=== PATIENT | male | born 1950 | race Caucasian/White ===

== ENCOUNTER → 2016-08-27 | Outpatient (REF) | payer MEDICARE, BC ==
[2016-08-27 16:17] LABS: ALBUMIN/GLOBULIN RATIO 1.38 (1.00-1.93); ALKALINE PHOSPHATASE 58 U/L (45-117); ALT/SGPT 60 U/L (12-78); ANION GAP 8 MEQ/L (8-16); AST/SGOT 56 U/L (15-37); BILIRUBIN,TOTAL 0.7 MG/DL (0.2-1.0); BLOOD UREA NITROGEN 17 MG/DL (7-18); CALCIUM LEVEL 8.9 MG/DL (8.8-10.2); CARBON DIOXIDE LEVEL 29 MEQ/L (21-32); CHLORIDE LEVEL 102 MEQ/L (98-107); CHOLESTEROL LEVEL 137 MG/DL (<200); CREATININE FOR GFR 0.78 MG/DL (0.70-1.30); GLOMERULAR FILTRATION RATE > 60.0 (>49); GLUCOSE, FASTING 136 MG/DL (80-110); POTASSIUM SERUM 4.4 MEQ/L (3.5-5.1); SODIUM LEVEL 139 MEQ/L (136-145); TOTAL PROTEIN 6.9 GM/DL (6.4-8.2); TRIGLYCERIDES LEVEL 135 MG/DL (<150)
== END ==
LOC: M SFHCSACK 08:15
PROVIDERS: ATTEND Physician Assistant
DX: I10 Essential (primary) hypertension (principal); E78.5 Hyperlipidemia, unspecified; E11.9 Type 2 diabetes mellitus without complications; E03.9 Hypothyroidism, unspecified

== ENCOUNTER → 2016-10-27 | Outpatient (REF) | payer BC, MEDICARE ==
[2016-10-27 16:17] LABS: ALBUMIN 3.9 GM/DL (3.2-5.2); ALBUMIN/GLOBULIN RATIO 1.44 (1.00-1.93); ALKALINE PHOSPHATASE 56 U/L (45-117); ALT/SGPT 54 U/L (12-78); ANION GAP 7 MEQ/L (8-16); AST/SGOT 35 U/L (15-37); BILIRUBIN,TOTAL 0.4 MG/DL (0.2-1.0); BLOOD UREA NITROGEN 15 MG/DL (7-18); CALCIUM LEVEL 9.7 MG/DL (8.8-10.2); CARBON DIOXIDE LEVEL 27 MEQ/L (21-32); CHLORIDE LEVEL 105 MEQ/L (98-107); CREATININE FOR GFR 0.82 MG/DL (0.70-1.30); GLOMERULAR FILTRATION RATE > 60.0 (>49); GLUCOSE, FASTING 129 MG/DL (80-110); POTASSIUM SERUM 4.6 MEQ/L (3.5-5.1); SODIUM LEVEL 139 MEQ/L (136-145); TOTAL PROTEIN 6.6 GM/DL (6.4-8.2)
== END ==
LOC: M SFHCSACK 08:00
PROVIDERS: ATTEND Physician Assistant
DX: E11.9 Type 2 diabetes mellitus without complications (principal)

== ENCOUNTER → 2017-02-04 | Outpatient (REF) | payer BC, MEDICARE ==
[2017-02-04 15:56] LABS: BASO # 0.1 10^3/uL (0.0-0.2); EOS # 0.2 10^3/uL (0.0-0.50); EOS % 2.6 % (0.0-3.0); IMMATURE GRANULOCYTE % 1.2 % (0-0); LYMPH # 1.8 10^3/uL (1.5-4.5); LYMPH % 31.8 % (24.0-44.0); MEAN CORPUSCULAR HEMOGLOBIN 33.4 pg (27.0-33.0); MEAN CORPUSCULAR HGB CONC 34.1 g/dl (32.0-36.5); MONO # 0.6 10^3/uL (0.0-0.8); NEUTROPHILS % 52.4 % (36.0-66.0); PLATELET COUNT, AUTOMATED 169 10^3/uL (150-450); RED CELL DISTRIBUTION WIDTH 11.8 % (11.5-14.5); WHITE BLOOD COUNT 5.7 10^3/uL (4.0-10.0)
[2017-02-04 16:18] LABS: ALBUMIN 4.1 GM/DL (3.2-5.2); ALBUMIN/GLOBULIN RATIO 1.41 (1.00-1.93); ALKALINE PHOSPHATASE 79 U/L (45-117); ALT/SGPT 67 U/L (12-78); ANION GAP 6 MEQ/L (8-16); AST/SGOT 53 U/L (15-37); BILIRUBIN,TOTAL 0.4 MG/DL (0.2-1.0); BLOOD UREA NITROGEN 19 MG/DL (7-18); CALCIUM LEVEL 9.1 MG/DL (8.8-10.2); CARBON DIOXIDE LEVEL 29 MEQ/L (21-32); CHLORIDE LEVEL 101 MEQ/L (98-107); CHOLESTEROL LEVEL 167 MG/DL (<200); FREE T4 0.99 NG/DL (0.76-1.46); GLOMERULAR FILTRATION RATE > 60.0 (>49); GLUCOSE, FASTING 129 MG/DL (80-110); POTASSIUM SERUM 4.4 MEQ/L (3.5-5.1); SODIUM LEVEL 136 MEQ/L (136-145); TRIGLYCERIDES LEVEL 177 MG/DL (<150)
== END ==
LOC: M SFHCSACK 08:26
PROVIDERS: ATTEND Physician Assistant
DX: E03.9 Hypothyroidism, unspecified (principal); I10 Essential (primary) hypertension; E11.9 Type 2 diabetes mellitus without complications; E78.5 Hyperlipidemia, unspecified

== ENCOUNTER → 2017-03-16 | Outpatient (CLI) | payer BC, MEDICARE ==
--- NOTE | 2017-03-16 09:24 | REP ---
Clinical: Lung screening. History smoking. Comparison: None Technique: Axial low-dose noncontrast images from the thoracic inlet to the upper abdomen using lung screening technique. Findings: The lung elam are well-aerated. No consolidation, significant nodule or mass lesion is appreciated. No pleural effusion/reaction or pneumothorax. Tracheobronchial tree is patent. Mediastinum is grossly unremarkable. Impression: Lung-RADS category I. No nodule or suspicious abnormality. Signed by Silvano Muñoz MD 03/16/2017 09:15 A
== END ==
LOC: M RAD 08:08
PROVIDERS: ATTEND Physician Assistant
DX: Z12.2 Encounter for screening for malignant neoplasm of respiratory organs (principal); Z72.0 Tobacco use

== ENCOUNTER → 2017-06-01 | Outpatient (REF) | payer BC, MEDICARE ==
[2017-06-01 14:38] LABS: BASO # 0.1 10^3/uL (0.0-0.2); BASO % 0.8 % (0.0-1.0); EOS # 0.2 10^3/uL (0.0-0.50); EOS % 3.1 % (0.0-3.0); HEMATOCRIT 46.6 % (42.0-52.0); LYMPH % 31.4 % (24.0-44.0); MEAN CORPUSCULAR HEMOGLOBIN 33.1 pg (27.0-33.0); MEAN CORPUSCULAR HGB CONC 34.3 g/dl (32.0-36.5); MEAN CORPUSCULAR VOLUME 96.3 fl (80.0-96.0); MONO # 0.7 10^3/uL (0.0-0.8); MONO % 11.6 % (0.0-5.0); NEUTROPHILS # 3.2 10^3/uL (1.8-7.7); NEUTROPHILS % 52.1 % (36.0-66.0); PLATELET COUNT, AUTOMATED 159 10^3/uL (150-450); RED BLOOD COUNT 4.84 10^6/uL (4.30-6.10); RED CELL DISTRIBUTION WIDTH 12.2 % (11.5-14.5); WHITE BLOOD COUNT 6.2 10^3/uL (4.0-10.0)
[2017-06-01 15:06] LABS: ESTIMATED AVERAGE GLUCOSE 154 MG/DL (60-110)
[2017-06-01 15:43] LABS: ALBUMIN 4.1 GM/DL (3.2-5.2); ALBUMIN/GLOBULIN RATIO 1.32 (1.00-1.93); ALKALINE PHOSPHATASE 60 U/L (45-117); ALT/SGPT 52 U/L (12-78); ANION GAP 11 MEQ/L (8-16); AST/SGOT 33 U/L (7-37); BILIRUBIN,TOTAL 0.5 MG/DL (0.2-1.0); BLOOD UREA NITROGEN 20 MG/DL (7-18); CALCIUM LEVEL 9.2 MG/DL (8.8-10.2); CARBON DIOXIDE LEVEL 25 MEQ/L (21-32); CHLORIDE LEVEL 104 MEQ/L (98-107); CHOLESTEROL LEVEL 144 MG/DL (<200); CHOLESTEROL RISK RATIO 4.235 (<5); CREATININE FOR GFR 0.79 MG/DL (0.70-1.30); GLOMERULAR FILTRATION RATE > 60.0 (>49); GLUCOSE, FASTING 135 MG/DL (70-100); HDL CHOLESTEROL 34 MG/DL (>40); LDL CHOLESTEROL 51.2 MG/DL (<100); NON-HDL-C 110 MG/DL; POTASSIUM SERUM 4.5 MEQ/L (3.5-5.1); SODIUM LEVEL 140 MEQ/L (136-145); TOTAL PROTEIN 7.2 GM/DL (6.4-8.2); TRIGLYCERIDES LEVEL 294 MG/DL (<150)
== END ==
LOC: M SFHCSACK 08:53
DX: I10 Essential (primary) hypertension (principal); E78.5 Hyperlipidemia, unspecified; E03.9 Hypothyroidism, unspecified; E11.9 Type 2 diabetes mellitus without complications
CPT/HCPCS: 84443

== ENCOUNTER → 2017-12-23 | Outpatient (REF) | payer BC, MEDICARE ==
[2017-12-23 12:43] LABS: BASO # 0.1 10^3/uL (0.0-0.2); BASO % 1.2 % (0.0-1.0); EOS # 0.2 10^3/uL (0.0-0.50); EOS % 2.5 % (0.0-3.0); HEMOGLOBIN 15.8 g/dl (13.5-17.5); IMMATURE GRANULOCYTE % 1.2 % (0-3.0); LYMPH # 1.7 10^3/uL (1.5-4.5); LYMPH % 28.8 % (24.0-44.0); MEAN CORPUSCULAR HEMOGLOBIN 33.4 pg (27.0-33.0); MEAN CORPUSCULAR HGB CONC 35.1 g/dl (32.0-36.5); MEAN CORPUSCULAR VOLUME 95.1 fl (80.0-96.0); MONO # 0.7 10^3/uL (0.0-0.8); MONO % 11.5 % (0.0-5.0); NEUTROPHILS # 3.3 10^3/uL (1.8-7.7); NEUTROPHILS % 54.8 % (36.0-66.0); PLATELET COUNT, AUTOMATED 178 10^3/uL (150-450); RED BLOOD COUNT 4.73 10^6/uL (4.30-6.10); RED CELL DISTRIBUTION WIDTH 11.9 % (11.5-14.5)
[2017-12-23 14:33] LABS: ALBUMIN 4.1 GM/DL (3.2-5.2); ALBUMIN/GLOBULIN RATIO 1.41 (1.00-1.93); ALKALINE PHOSPHATASE 61 U/L (45-117); ALT/SGPT 34 U/L (12-78); ANION GAP 8 MEQ/L (8-16); AST/SGOT 26 U/L (7-37); BILIRUBIN,TOTAL 0.6 MG/DL (0.2-1.0); BLOOD UREA NITROGEN 20 MG/DL (7-18); CALCIUM LEVEL 9.1 MG/DL (8.8-10.2); CARBON DIOXIDE LEVEL 25 MEQ/L (21-32); CHLORIDE LEVEL 106 MEQ/L (98-107); CHOLESTEROL LEVEL 126 MG/DL (<200); CREATININE FOR GFR 0.69 MG/DL (0.70-1.30); FREE T4 1.19 NG/DL (0.76-1.46); GLOMERULAR FILTRATION RATE > 60.0 (>49); GLUCOSE, FASTING 126 MG/DL (70-100); HDL CHOLESTEROL 43 MG/DL (>40); NON-HDL-C 83 MG/DL; SODIUM LEVEL 139 MEQ/L (136-145); THYROID STIMULATING HORMONE 0.868 uIU/ML (0.358-3.740); TRIGLYCERIDES LEVEL 105 MG/DL (<150)
[2017-12-23 16:44] LABS: ESTIMATED AVERAGE GLUCOSE 157 MG/DL (60-110); HEMOGLOBIN A1c 7.1 %
== END ==
LOC: M SFHCSACK 08:38
DX: I10 Essential (primary) hypertension (principal); E78.5 Hyperlipidemia, unspecified; E03.9 Hypothyroidism, unspecified; E11.9 Type 2 diabetes mellitus without complications
CPT/HCPCS: 84443

== ENCOUNTER → 2018-07-12 | Outpatient (REF) | payer BC, MEDICARE ==
[2018-07-12 14:36] LABS: BASO # 0.1 10^3/uL (0.0-0.2); BASO % 1.4 % (0.0-1.0); EOS # 0.2 10^3/uL (0.0-0.50); EOS % 3.6 % (0.0-3.0); HEMATOCRIT 45.1 % (42.0-52.0); HEMOGLOBIN 15.7 g/dl (13.5-17.5); LYMPH % 30.4 % (24.0-44.0); MEAN CORPUSCULAR HEMOGLOBIN 33.3 pg (27.0-33.0); MEAN CORPUSCULAR HGB CONC 34.8 g/dl (32.0-36.5); MEAN CORPUSCULAR VOLUME 95.6 fl (80.0-96.0); MONO # 0.7 10^3/uL (0.0-0.8); NEUTROPHILS # 3.5 10^3/uL (1.8-7.7); NEUTROPHILS % 53.8 % (36.0-66.0); PLATELET COUNT, AUTOMATED 165 10^3/uL (150-450); RED BLOOD COUNT 4.72 10^6/uL (4.30-6.10); WHITE BLOOD COUNT 6.5 10^3/uL (4.0-10.0)
[2018-07-12 14:54] LABS: BLOOD UREA NITROGEN 19 MG/DL (7-18); CALCIUM LEVEL 9.4 MG/DL (8.8-10.2); CARBON DIOXIDE LEVEL 29 MEQ/L (21-32); CHLORIDE LEVEL 102 MEQ/L (98-107); CREATININE FOR GFR 0.84 MG/DL (0.70-1.30); GLOMERULAR FILTRATION RATE > 60.0 (>49); GLUCOSE, FASTING 120 MG/DL (70-100); POTASSIUM SERUM 4.5 MEQ/L (3.5-5.1); SODIUM LEVEL 138 MEQ/L (136-145)
[2018-07-12 14:55] LABS: ALT/SGPT 52 U/L (12-78); BILIRUBIN,TOTAL 0.4 MG/DL (0.2-1.0); CHOLESTEROL LEVEL 147 MG/DL (<200); CHOLESTEROL RISK RATIO 3.868 (<5); FREE T4 0.97 NG/DL (0.76-1.46); HDL CHOLESTEROL 38 MG/DL (>40); LDL CHOLESTEROL 66 MG/DL (<100); NON-HDL-C 109 MG/DL; TOTAL PROTEIN 6.8 GM/DL (6.4-8.2); TRIGLYCERIDES LEVEL 216 MG/DL (<150)
[2018-07-12 15:21] LABS: HEMOGLOBIN A1c 6.7 %
== END ==
LOC: M SFHCSACK 08:17
PROVIDERS: ATTEND Physician Assistant
DX: I10 Essential (primary) hypertension (principal); E78.5 Hyperlipidemia, unspecified; E03.9 Hypothyroidism, unspecified; E11.9 Type 2 diabetes mellitus without complications

== ENCOUNTER → 2019-01-19 | Outpatient (CLI) | payer MEDICARE, BC ==
[2019-01-19 09:21] LABS: BASO # 0.1 10^3/uL (0.0-0.2); BASO % 1.5 % (0.0-1.0); EOS # 0.2 10^3/uL (0.0-0.5); EOS % 3.7 % (0.0-3.0); HEMATOCRIT 44.9 % (42.0-52.0); HEMOGLOBIN 15.3 g/dl (13.5-17.5); LYMPH # 1.9 10^3/uL (1.5-5.0); LYMPH % 34.7 % (24.0-44.0); MEAN CORPUSCULAR HEMOGLOBIN 32.9 pg (27.0-33.0); MEAN CORPUSCULAR HGB CONC 34.1 g/dl (32.0-36.5); MEAN CORPUSCULAR VOLUME 96.6 fl (80.0-96.0); MONO # 0.7 10^3/uL (0.0-0.8); MONO % 13.2 % (0.0-5.0); NEUTROPHILS # 2.5 10^3/uL (1.5-8.5); NEUTROPHILS % 45.4 % (36.0-66.0); PLATELET COUNT, AUTOMATED 158 10^3/uL (150-450); RED BLOOD COUNT 4.65 10^6/uL (4.30-6.10); WHITE BLOOD COUNT 5.4 10^3/uL (4.0-10.0)
[2019-01-19 09:40] LABS: ALBUMIN 3.6 GM/DL (3.2-5.2); ALT/SGPT 41 U/L (12-78); BILIRUBIN,TOTAL 0.4 MG/DL (0.2-1.0); BLOOD UREA NITROGEN 14 MG/DL (7-18); CALCIUM LEVEL 9.7 MG/DL (8.8-10.2); CARBON DIOXIDE LEVEL 29 MEQ/L (21-32); CHLORIDE LEVEL 105 MEQ/L (98-107); CHOLESTEROL LEVEL 139 MG/DL (<200); CHOLESTEROL RISK RATIO 3.475 (<5); CREATININE FOR GFR 0.84 MG/DL (0.70-1.30); FREE T4 0.93 NG/DL (0.76-1.46); GLOMERULAR FILTRATION RATE > 60.0 (>49); GLUCOSE, FASTING 134 MG/DL (70-100); HDL CHOLESTEROL 40 MG/DL (>40); LDL CHOLESTEROL 55 MG/DL (<100); NON-HDL-C 99 MG/DL; POTASSIUM SERUM 4.7 MEQ/L (3.5-5.1); SODIUM LEVEL 141 MEQ/L (136-145); TOTAL PROTEIN 6.6 GM/DL (6.4-8.2); TRIGLYCERIDES LEVEL 221 MG/DL (<150)
[2019-01-19 09:43] LABS: CREATININE, URINE 71.6 MG/DL; MALB URINE SIEMENS 7.8 MG/L; MAU/CREAT RATIO 10.8 MCG/MG (0.0-30.0)
== END ==
LOC: M WUC 08:12
PROVIDERS: ATTEND Physician Assistant
DX: E78.5 Hyperlipidemia, unspecified (principal); E11.9 Type 2 diabetes mellitus without complications; E03.9 Hypothyroidism, unspecified; Z12.5 Encounter for screening for malignant neoplasm of prostate
CPT/HCPCS: 36415; 80053; 80061; 82043; 83036; 84439; 84443; 85025; G0103

== ENCOUNTER → 2019-05-06 | Outpatient (REF) | payer MEDICARE, BC ==
[2019-05-06 14:41] LABS: ALBUMIN 4.3 GM/DL (3.2-5.2); ALT/SGPT 55 U/L (12-78); BILIRUBIN,TOTAL 0.7 MG/DL (0.2-1.0); BLOOD UREA NITROGEN 19 MG/DL (7-18); CALCIUM LEVEL 9.7 MG/DL (8.8-10.2); CARBON DIOXIDE LEVEL 29 MEQ/L (21-32); CHLORIDE LEVEL 100 MEQ/L (98-107); CHOLESTEROL LEVEL 140 MG/DL (<200); CHOLESTEROL RISK RATIO 4.117 (<5); CREATININE FOR GFR 0.83 MG/DL (0.70-1.30); FREE T4 1.35 NG/DL (0.76-1.46); GLOMERULAR FILTRATION RATE > 60.0 (>49); GLUCOSE, FASTING 145 MG/DL (70-100); HDL CHOLESTEROL 34 MG/DL (>40); HEMOGLOBIN A1c 7.4 %; LDL CHOLESTEROL 54 MG/DL (<100); NON-HDL-C 106 MG/DL; POTASSIUM SERUM 4.5 MEQ/L (3.5-5.1); SODIUM LEVEL 139 MEQ/L (136-145); THYROID STIMULATING HORMONE 0.087 uIU/ML (0.358-3.740); TOTAL PROTEIN 7.4 GM/DL (6.4-8.2); TRIGLYCERIDES LEVEL 262 MG/DL (<150)
[2019-05-06 14:43] LABS: BASO # 0.1 10^3/uL (0.0-0.2); EOS # 0.2 10^3/uL (0.0-0.5); EOS % 3.1 % (0.0-3.0); HEMATOCRIT 49.5 % (42.0-52.0); HEMOGLOBIN 16.7 g/dl (13.5-17.5); LYMPH % 29.7 % (24.0-44.0); MEAN CORPUSCULAR HEMOGLOBIN 32.6 pg (27.0-33.0); MEAN CORPUSCULAR HGB CONC 33.7 g/dl (32.0-36.5); MEAN CORPUSCULAR VOLUME 96.7 fl (80.0-96.0); MONO # 0.7 10^3/uL (0.0-0.8); MONO % 10.6 % (0.0-5.0); NEUTROPHILS # 3.7 10^3/uL (1.5-8.5); NEUTROPHILS % 54.6 % (36.0-66.0); PLATELET COUNT, AUTOMATED 157 10^3/uL (150-450); RED BLOOD COUNT 5.12 10^6/uL (4.30-6.10); WHITE BLOOD COUNT 6.8 10^3/uL (4.0-10.0)
== END ==
LOC: M SFHCSACK 11:13
PROVIDERS: ATTEND Physician Assistant
DX: I10 Essential (primary) hypertension (principal); R74.8 Abnormal levels of other serum enzymes; E03.9 Hypothyroidism, unspecified; E11.9 Type 2 diabetes mellitus without complications; E78.2 Mixed hyperlipidemia

== ENCOUNTER → 2019-11-18 | Outpatient (CLI) | payer MEDICARE, SELFPAY | LOC: M LABSMTC 13:30 | PROVIDERS: ATTEND Pediatrics | DX: Z11.59 Encounter for screening for other viral diseases (principal) | CPT/HCPCS: C9803; U0003 ==

== ENCOUNTER → 2020-03-13 | Outpatient (CLI) | payer MEDICARE ==
[2020-03-13 17:00] LABS: BASO # 0.1 10^3/uL (0.0-0.2); EOS # 0.1 10^3/uL (0.0-0.5); EOS % 1.5 % (0.0-3.0); HEMATOCRIT 47.7 % (42.0-52.0); HEMOGLOBIN 16.2 g/dl (13.5-17.5); LYMPH % 24.7 % (24.0-44.0); MEAN CORPUSCULAR HEMOGLOBIN 33.1 pg (27.0-33.0); MEAN CORPUSCULAR VOLUME 97.5 fl (80.0-96.0); MONO # 0.8 10^3/uL (0.0-0.8); MONO % 10.3 % (0.0-5.0); NEUTROPHILS # 4.9 10^3/uL (1.5-8.5); NEUTROPHILS % 61.6 % (36.0-66.0); PLATELET COUNT, AUTOMATED 203 10^3/uL (150-450); RED BLOOD COUNT 4.89 10^6/uL (4.30-6.10); WHITE BLOOD COUNT 7.9 10^3/uL (4.0-10.0)
[2020-03-13 17:13] LABS: ALBUMIN 4.2 GM/DL (3.2-5.2); ALT/SGPT 30 U/L (12-78); BILIRUBIN,TOTAL 0.5 MG/DL (0.2-1.0); BLOOD UREA NITROGEN 21 MG/DL (7-18); CALCIUM LEVEL 10.2 MG/DL (8.8-10.2); CARBON DIOXIDE LEVEL 30 MEQ/L (21-32); CHLORIDE LEVEL 103 MEQ/L (98-107); CHOLESTEROL LEVEL 158 MG/DL (<200); CREATININE FOR GFR 1.03 MG/DL (0.70-1.30); FREE T4 1.31 NG/DL (0.76-1.46); GLOMERULAR FILTRATION RATE > 60.0 (>49); GLUCOSE, FASTING 104 MG/DL (70-100); HDL CHOLESTEROL 50 MG/DL (>40); LDL CHOLESTEROL 50 MG/DL (<100); NON-HDL-C 108 MG/DL; POTASSIUM SERUM 4.4 MEQ/L (3.5-5.1); SODIUM LEVEL 139 MEQ/L (136-145); TOTAL PROTEIN 7.1 GM/DL (6.4-8.2); TRIGLYCERIDES LEVEL 290 MG/DL (<150)
[2020-03-13 17:19] LABS: HEMOGLOBIN A1c 6.7 %
[2020-03-13 17:35] LABS: CREATININE, URINE 76.8 MG/DL; MALB URINE SIEMENS 5.3 MG/L; MAU/CREAT RATIO 6.9 MCG/MG (0.0-30.0)
== END ==
LOC: M PLALAB 14:26
PROVIDERS: ATTEND Nurse Practitioner Family
DX: E78.2 Mixed hyperlipidemia (principal); I10 Essential (primary) hypertension; E03.9 Hypothyroidism, unspecified; E11.9 Type 2 diabetes mellitus without complications

== ENCOUNTER → 2020-04-09 | Outpatient (CLI) | payer MEDICARE, BC ==
--- NOTE | 2020-04-09 09:18 | REP ---
INDICATION: LUNG SCREENING COMPARISON: 03/16/2017 TECHNIQUE: Axial noncontrast images from the thoracic inlet to the upper abdomen using low-dose lung screening technique (LDCT). FINDINGS: The bilateral lung elam are well aerated and essentially clear. No significant nodule or mass lesion identified. No consolidation, effusion, or pneumothorax. Tracheobronchial tree is patent. Limited evaluation of the mediastinum is grossly unremarkable. IMPRESSION: Lung-RADS category 1. No suspicious nodule or mass lesion. Management recommendations include annual low-dose CT surveillance. <Electronically signed by Silvano Muñoz > 04/09/20 0915
== END ==
LOC: M RAD 07:59
PROVIDERS: ATTEND Nurse Practitioner Family
DX: Z12.2 Encounter for screening for malignant neoplasm of respiratory organs (principal); Z87.891 Personal history of nicotine dependence

== ENCOUNTER → 2020-05-24 | Outpatient (CLI) | payer MEDICARE, BC ==
--- NOTE | 2020-05-24 09:06 | REP ---
INDICATION: CERVICALGIA COMPARISON: None. TECHNIQUE: Two views of the left clavicle. FINDINGS: Spurring/early osteophyte formation at the acromioclavicular joint is appreciated. Evidence for prior left shoulder replacement. Subacromial space is normal. No periarticular calcifications. Surrounding soft tissues are unremarkable. IMPRESSION: 1. Left shoulder replacement. Age-related degenerative changes at the AC joint. <Electronically signed by Silvano Muñoz > 05/24/20 0902
--- NOTE | 2020-05-24 09:32 | REP ---
INDICATION: CERVICALGIA. COMPARISON: None. TECHNIQUE: AP, lateral, flexion/extension, bilateral oblique, and open mouth views of the cervical spine. FINDINGS: Flexion demonstrates very minimal 1.5 mm anterolisthesis at the C4-5 level. Advanced degenerative changes primarily involve C5-6 and C6-7 and to a lesser extent C7-T1 and C4-5 with osteophytosis, endplate sclerosis, disc space narrowing, and facet hypertrophy. There is no evidence for acute fracture/compression injury or subluxation. Open mouth view demonstrates normal C1-C2 articulation and odontoid process. Oblique views demonstrate patent neural foramen. IMPRESSION: Advanced degenerative spondylosis as described above. <Electronically signed by Silvano Muñoz > 05/24/20 0998
== END ==
LOC: M RAD 08:44
PROVIDERS: ATTEND Nurse Practitioner Family
DX: M54.2 Cervicalgia (principal); M25.512 Pain in left shoulder; Z96.612 Presence of left artificial shoulder joint

== ENCOUNTER 2020-06-12 09:58 | Emergency (ER) | payer OTHER, MEDICARE, BC ==
[~2020-06-12] VITALS: Ht 167.6 cm; Wt 73.2 kg
--- OUTSIDE RECORDS SUMMARY | 2020-06-12 10:07 | CCD ---
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 Active confirmed 39799912 Problem Abnormal liver enzymes R74.8 Active confirmed 032462410 Problem 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 Active confirmed 6451500281360 Problem Mixed hyperlipidemia E78.2 Active confirmed 863835399 ALLERGIES Allergen (clinical drug ingredient) Drug/Non Drug Allergy do cumented on EMR Reaction Allergy Type Onset Date Status diclofenac Voltaren([facility] Code:[address]-65) Rash Drug Allergy Active ENCOUNTERS from 1950 to 2020-05-24 Encounter Location Date Provider Diagnosis [address] [address] May, Mae Gordon IMMUNIZATIONS Vaccine Route Administration Date Status Influenza (18 yrs & older) Flublok IM Intramuscular May 09, 2019 Administered Influenza (18 yrs & older) Flublok Unknown Mar 07, 2020 Administered Influenza (High Dose 65 & up) IM Intramuscular Feb 04, 2017 A dministered TDAP 0.5mL (Boostrix) IM Intramuscular Dec 10, 2012 Administe red Pneumococcal 0.5mL (Prevnar 13) IM Intramuscular August 29, 2016 Administered TD Adult 0.5mL (Tetanus) Unknown Nov 29, 2012 Pending Influenza (6mo & up) Fluzone Unknown Jan 17, 2016 Adm inistered SOCIAL HISTORY Tobacco Use: Social History Observation Description Date Details (start date - stop date) Former Smoker Sex Assigned At : Social History Observation Description Sex Assigned At Unknown Education: Question Answer Notes Level of Education: Not Finished College Language: Question Answer Notes Languages spoken: [place]an Sikh: Question Answer Notes Sikh 21 Restoration Domestic Violence: Question Answer Notes Status: denies 06/08/2017 Sexual Hx: Question Answer Notes Had sex in the last 12 months (vaginal, oral, or anal)? Yes Have you ever had an STD? No with Women only Use protection? No Alcohol Screening: Question Answer Notes Did you have a drink containing alcohol in the past year? Ye s Points 8 Interpretation Positive How often did you have six or more drinks on one occas ion in the past year? Monthly (2 points) How many drinks did you have on a typica l day when you were drinking in the past year? 5 or 6 (2 points) How often did you have a drink containing alcohol in t he past year? Four or more times a week (4 points) Tobacco Use: Question Answer Notes Are you a: former smoker How long has it been since you last smoked? 3-6 months REASON FOR REFERRAL No Information VITAL SIGNS No information MEDICATIONS Medication SIG (Take, Route, Frequency, Duration) Notes Start Da te End Date Status Aspirin 81 MG 1 tablet Orally weekly Active Fenofibrate 48 MG TAKE ONE TABLET BY MOUTH EVERY DAY for 30 Active Losartan Potassium 50 MG TAKE ONE TABLET BY MOUTH EVERY DAY for 30 Active Simvastatin 40 MG 1 tablet in the evening Orally Once a day for 90 Active Levothyroxine Sodium 112 MCG 1 tablet in the morning o n an empty stomach Orally Once a day for 90 day(s) Active Metformin HCl 1000 mg 1 tablet with meals Orally Twice a day for 90 Active Farxiga 5 mg 1 tablet Orally Once a day for 30 Active PROCEDURES No Information RESULTS No Results REASON FOR VISIT fall MEDICAL (GENERAL) HISTORY Type Description Date Medical History HTN Medical History high cholesterol Medical History DM type II Medical History Epidermal cyst Medical History Osteoarthritis, generalized Medical History Carpal tunnel syndrome of right wrist Medical History Basal Cell Carcinoma removed 05/07 Surgical History left shoulder replacement (complete), Dr Kim English at [facility] April, Surgical History colonoscopy 11/01 Surgical History Basal Cell removed from right side cheek 04/2017 Hospitalization History chicken pox 1969' Goals Section No Information Health Concerns No Information MEDICAL EQUIPMENT No Information MENTAL STATUS No Information FUNCTIONAL STATUS No Information ASSESSMENTS No Information PLAN OF TREATMENT Next Appt Details Provider Name:Mae Gordon, 07-04 08:15:00 AM, [address] [place] [address], [phone], Provider Name:Mae Gordon 07-25 09:30:00 AM, [address] [place] [address], [phone], Insurance Providers Payer Name Payer Address Payer Phone Insured Name Patient Relati onship to Insured Coverage Start Date Coverage End Date MEDICARE Part A and B [address] [facility] [phone] JOSE HERNANDEZ self 2016 BS [place] [facility] [address] [place] [place] [address] JOSE HERNANDEZ self
--- OUTSIDE RECORDS SUMMARY | 2020-06-12 10:07 | CCD ---
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 Name Role Phone Shade Gordony Unavailable PROBLEMS Type Condition ICD9-CM Code [id number] Code Onset Dates Condition S tatus SNOMED Code Notes Problem Hyperlipidemia associated with type 2 diabetes mellitus E11.69 Active 987793387014 Problem Diabetes mellitus type 2 in nonobese E11.9 Act marcella 413416940 Problem Hypertension I10 Active 16953126 Problem Mixed hyperlipidemia E78.2 Active 806937971 Problem Former smoker Z87.891 Active 7986363 Problem Hypothyroidism E03.9 Active 22677301 Problem Osteoarthritis, shoulder M19.019 Active 2579293 1 Problem Abnormal liver enzymes R74.8 Active 476089387 Problem 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 Active 7449427447 102 ALLERGIES Allergen (clinical drug ingredient) Drug/Non Drug Allergy do cumented on EMR Reaction Allergy Type Onset Date Status diclofenac Voltaren([facility] Code:[address]-73) Rash Drug Allergy Active ENCOUNTERS from 1950 to 2020-03-14 Encounter Location Date Provider Diagnosis [address] [address] Feb, Mae Gordon IMMUNIZATIONS Vaccine Route Administration Date Status Influenza (18 yrs & older) Flublok IM Intramuscular May 09, 2019 Administered Influenza (High Dose 65 & up) [...] College Language: Question Answer Notes Languages spoken: Yakut Restorationist: Question Answer Notes Restorationist 21 Pentecostalism Domestic Violence: Question Answer Notes Status: denies [...] Notes Start Da te End Date Status Metformin HCl 1000 mg 1 tablet with meals Orally Twice a day for 90 day(s) Active Aspirin 81 MG 1 tablet Orally weekly Active Fenofibrate 48 MG TAKE ONE TABLET BY MOUTH EVERY DAY for 30 Active Simvastatin 40 MG 1 tablet in the evening Orally Once a day for 90 da y(s) Active Levothyroxine Sodium 125 MCG TAKE ONE TABLET BY MOUTH EVERY DAY for 3 0 Active Losartan Potassium 50 MG TAKE ONE TABLET BY MOUTH EVERY DAY for 30 Active Farxiga 5 mg 1 tablet Orally Once a day for 30 Days Active PROCEDURES No Information RESULTS No Results REASON FOR VISIT refill MEDICAL (GENERAL) HISTORY Type Description Date Medical History HTN Medical History high cholesterol Medical History DM type II Medical History Epidermal cyst Medical History Osteoarthritis, generalized Medical History Carpal tunnel syndrome of right wrist Medical History Basal Cell Carcinoma removed 05/07 Surgical History left shoulder replacement (complete), Dr iKm English at [facility] April, Surgical History colonoscopy 11/01 Surgical History Basal Cell removed from right side cheek 04/2017 Hospitalization History chicken pox 1970' Goals Section No Information Health Concerns No Information MEDICAL EQUIPMENT No Information MENTAL STATUS No Information FUNCTIONAL STATUS No Information ASSESSMENTS No Information PLAN OF TREATMENT Medication Medication Name Sig Start Date Stop Date Metformin HCl 1000 mg 1 tablet with meals Orally Twice a day for 90 day(s) Levothyroxine Sodium 125 MCG TAKE ONE TABLET BY MOUTH EVERY DAY for 30 Losartan Potassium 50 MG TAKE ONE TABLET BY MOUTH EVERY DAY for 30 Simvastatin 40 MG 1 tablet in the evening Orally Once a day for 90 day(s) Farxiga 5 mg 1 tablet Orally Once a day for 30 Days Fenofibrate 48 MG TAKE ONE TABLET BY MOUTH EVERY DAY for 30 Next Appt Details Provider Name:Mae eLyuko, 2019-1 05-22 10:15:00 AM, [address] [place], [address], Insurance Providers Payer Name Payer Address Payer Phone Insured Name Patient Relati onship to Insured Coverage Start Date Coverage End Date MEDICARE Part A and B [address] [facility] [phone] JOSE HERNANDEZ self 2016 BS ALEX[address]U RENDON [facility] [address] [facility] [address] [phone] JOSE HERNANDEZ self
--- OUTSIDE RECORDS SUMMARY | 2020-06-12 10:07 | CCD ---
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 Name Role Phone Mae Gordon Unavailable PROBLEMS Type Condition ICD9-CM Code OCL61-AB Code Onset Dates Condition S tatus SNOMED Code Notes Problem Hypertension I10 Active 80155880 Problem Hypothyroidism E03.9 Active 09728902 Problem Former smoker Z87.891 Active 1018719 Problem Diabetes mellitus, type 2 E11.9 Active 498882 06 Problem Osteoarthritis, shoulder M19.019 Active 3200747 1 Problem Abnormal liver enzymes R74.8 Active 316349814 Problem 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 Active 1752103670 102 Problem Mixed hyperlipidemia E78.2 Active 885333001 ALLERGIES Allergen (clinical drug ingredient) Drug/Non Drug Allergy do cumented on EMR Reaction Allergy Type Onset Date Status diclofenac Voltaren([facility] Code:[address]-83) Rash Drug Allergy Active ENCOUNTERS from 1950 to 2020-03-27 Encounter Location Date Provider Diagnosis [address] [address] Mar, Mae Gordon Hypertension I10 ; Mixed hyperlipidemia E78.2 ; Hypothyroidism E03.9 ; Former smoker Z87.891 ; Enlarged lymph nodes R59.9 ; Diabetes mellitus, type 2 E11.9 ; Weight loss R63.4 and Encounter for screening for lung cancer Z12.2 IMMUNIZATIONS Vaccine Route Administration Date Status Influenza (18 yrs & older) Flublok Unknown Mar 07, 2020 Administered Influenza (18 yrs & older) Flublok IM [...] College Language: Question Answer Notes Languages spoken: Paraguayan Advent: Question Answer Notes Advent 21 Sabianist Domestic Violence: Question Answer Notes Status: denies [...] REASON FOR REFERRAL No Information VITAL SIGNS Weight 156 lbs Mar, Height 66.5 in Mar, BMI 24.80 kg/m2 Mar, Heart Rate 77 /min Mar, Respiratory Rate 18 /min Mar, Temperature 98.3 degrees Fahrenheit Mar, Oximetry 94% Mar, Blood pressure systolic 128 mm Hg Mar, Blood pressure diastolic 78 mm Hg Mar, MEDICATIONS Medication SIG (Take, Route, Frequency, Duration) Notes Start Da te End Date Status Simvastatin 40 MG 1 tablet in the evening Orally Once a day for 90 da y(s) Active Levothyroxine Sodium 112 MCG 1 tablet in the morning o n an empty stomach Orally Once a day for 90 day(s) Active Farxiga 5 mg 1 tablet Orally Once a day Active Levothyroxine Sodium 125 MCG TAKE ONE TABLET BY MOUTH EVERY DAY for 3 0 Active Losartan Potassium 50 MG 1/2 tablet by mouth every day orall y bid for 90 day(s) Active Fenofibrate 48 MG take one tablet by mouth every day orall y Daily for 90 day(s) Active Aspirin 81 MG 1 tablet Orally weekly Not-Taking Metformin HCl 1000 mg 1 tablet with meals Orally Daily Active PROCEDURES No Information RESULTS Component Value Reference Range [facility] THYROID, SOFT TISSUE HEAD +NECK US Reviewed date:03/30/2020 09:10:10 Interpretation: Performing Lab:[facility],[address]], ,[place] [id number] REASON FOR VISIT transfer Feparadox MEDICAL (GENERAL) HISTORY Type Description Date Medical History HTN Medical History high cholesterol Medical History DM type II Medical History Epidermal cyst Medical History Osteoarthritis, generalized Medical History Carpal tunnel syndrome of right wrist Medical History Basal Cell Carcinoma removed 05/07 Surgical History left shoulder replacement (complete), Dr Kim English at [facility] April, Surgical History colonoscopy 11/01 Surgical History Basal Cell removed from right side cheek 04/2017 Hospitalization History chicken pox Goals Section No Information Health Concerns No Information MEDICAL EQUIPMENT No Information MENTAL STATUS No Information FUNCTIONAL STATUS No Information ASSESSMENTS Encounter Date Diagnosis Assessment Notes Treatment Notes Treatm ent Clinical Notes Mar, Hypertension (ICD-10 - I10) continue current regimen. Mar, Mixed hyperlipidemia (ICD-10 - E78.2) 02/2020 50, 50, 290 contingency: Atorvas Mar, Hypothyroidism (ICD-10 - E03.9) Reduced Synthroid today due to low TSH. Recheck with future labs. 02/2020 0.200, 1.3 decrease to 112mcg Mar, Former smoker (ICD-10 - Z87.891) Encouraged him to continue not smoking. Mar, Enlarged lymph nodes (ICD-10 - R59.9) 1-2 cm non tender L palpable mobile submanibular lymphnode Mar, Diabetes mellitus, type 2 (ICD-10 - E11.9) decrease met 1000mg given side effects, continue farxiga 02/2020 6.7 MELANY 6.9 Mar, Weight loss (ICD-10 - R63.4) Taper metformin dose repeat low dose CT chest given former smoker although no active sxs. Mar, Encounter for screening for lung cancer (ICD-10 - Z12.2) 40 pack a year history former smoker quit 1 year ago Mar, Other Worse since las t visit. Pt has only been taking Metformin 1 a day to see if it was effective (his choice, not mine). Pt understands that he needs to increase back to 2 Metformin a day. PLAN OF TREATMENT Medication Medication Name Sig Start Date Stop Date Simvastatin 40 MG 1 tablet in the evening Orally Once a day for 90 day(s) Fenofibrate 48 MG take one tablet by mouth every day orall y Daily for 90 day(s) Farxiga 5 mg 1 tablet Orally Once a day Losartan Potassium 50 MG 1/2 tablet by mouth every day orall y bid for 90 day(s) Metformin HCl 1000 mg 1 tablet with meals Orally Daily Levothyroxine Sodium 112 MCG 1 tablet in the morning o n an empty stomach Orally Once a day for 90 day(s) Treatment Notes Assessment Notes Clinical Notes Hypertension continue current reg imen. Mixed hyperlipidemia 02/2020 50, 50, 290 contingency: Atorvas Hypothyroidism Reduced Synthroid to day due to low TSH. Recheck with future labs.02/2020 0.200, 1.3 decrease to 112mcg Former smoker Encouraged him to co ntinue not smoking. Enlarged lymph nodes 1-2 cm non tender L palpable mobile submanibular lymphnode Diabetes mellitus, type 2 decrease met 1 000mg given side effects, continue aaahrrg55/2020 6.7 MELANY 6.9 Weight loss Taper metformin dose repeat low dose CT chest given former smoker although no active sxs. Encounter for screening for lung cancer 40 pack a year historyformer smokerquit 1 year ago Treatment Notes Test Name Order Date [facility] THYROID, SOFT TISSUE HEAD +NECK US 2020-03-27 Low Dose Lung Screening CT Chest 2020-03-27 Future Test Test Name Order Date Comprehensive Metabolic Profile (CMP) [id number] LIPID PANEL (CARDIAC RISK) [id number] HEMOGLOBIN A1c [id number] FREE T4 & TSH PANEL [id number] CBC with Differential [id number] Next Appt Details 4 Months f/u Reason: Provider Name:Maejuju Gordon, 07-25 09:30:00 AM, [address] [place], [address], Insurance Providers Payer Name Payer Address Payer Phone Insured Name Patient Relati onship to Insured Coverage Start Date Coverage End Date MEDICARE Part A and B [address] [facility] [phone] JOSE HERNANDEZ self [address] [place] [address] [facility] [address] JOSE HERNANDEZ self
--- OUTSIDE RECORDS SUMMARY | 2020-06-12 10:07 | CCD ---
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 Role Phone Mae Gordon Unavailable PROBLEMS Type Condition ICD9-CM Code HLA31-GP Code Onset Dates Condition S tatus W/U Status Risk SNOMED Code Notes Problem Hypertension I10 Active confirmed 6718039 3 Problem Hypothyroidism E03.9 Active confirmed 28559 008 Problem Former smoker Z87.891 Active confirmed 17609 06 Problem Diabetes mellitus, type 2 E11.9 Active confirmed 26310962 Problem Osteoarthritis, shoulder M19.019 Active confirmed 74080484 Problem Abnormal liver enzymes R74.8 Active confirmed 315679549 Problem 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 Active confirmed 1547357998588 Problem Mixed hyperlipidemia E78.2 Active confirmed 535636790 ALLERGIES Allergen (clinical drug ingredient) Drug/Non Drug Allergy do cumented on EMR Reaction Allergy Type Onset Date Status diclofenac Voltaren([facility] Code:[address]-54) Rash Drug Allergy Active ENCOUNTERS from 1950 to 2020-05-28 Encounter Location Date Provider Diagnosis [address] [address] May, Mae Eddaerik Arthralgia of left acromioclavicular reynold nt M25.512 and Cervical pain (neck) M54.2 IMMUNIZATIONS Vaccine Route Administration Date Status Influenza [...] College Language: Question Answer Notes Languages spoken: Iraqi Caodaism: Question Answer Notes Caodaism 21 Mormon Domestic Violence: Question Answer Notes Status: denies [...] FOR REFERRAL No Information VITAL SIGNS Weight 164 lbs May, Height 66.5 in May, BMI 26.07 kg/m2 May, Heart Rate 90 /min May, Respiratory Rate 18 /min May, Temperature 98 degrees Fahrenheit May, Oximetry 97% May, Blood pressure systolic 128 mm Hg May, Blood pressure diastolic 80 mm Hg May, MEDICATIONS Medication SIG (Take, Route, Frequency, Duration) [...] Information RESULTS No Results REASON FOR VISIT left arm injury MEDICAL (GENERAL) HISTORY Type Description Date Medical History HTN Medical History high cholesterol Medical History DM type II Medical History Epidermal cyst Medical History Osteoarthritis, generalized Medical History Carpal tunnel syndrome of right wrist Medical History Basal Cell Carcinoma removed 05/07 Surgical History left shoulder replacement (complete), Dr Kim English at [facility] April, Surgical History colonoscopy 11/01 Surgical History Basal Cell removed from right side cheek 04/2017 Hospitalization History chicken pox Goals Section No Information Health Concerns No Information MEDICAL EQUIPMENT No Information MENTAL STATUS No Information FUNCTIONAL STATUS No Information ASSESSMENTS Encounter Date Diagnosis Assessment Notes Treatment Notes Treatm ent Clinical Notes May, Arthralgia of left acromioclavicular joint (ICD- 10 - M25.512) obtain x-ray to r/o Home stretches contingency: MRI May, Cervical pain (neck) (ICD-10 - M54.2) obtain x-ray PLAN OF TREATMENT Treatment Notes Assessment Notes Clinical Notes Arthralgia of left acromioclavicular joint obtain x-ray to r/oHome stretchescontingency: MRI Cervical pain (neck) obtain x-ray Treatment Notes Test Name Order Date [facility] Shoulder, complete 2020-05-23 PLZ SPINE CERVICAL COMPLETE 2020-05-23 PLZ CLAVICLE X-RAY 2020-05-23 Next Appt Details Reason: Provider Name:Mae Gordon 07-04 08:15:00 AM, [address] [place] [address], [phone], Provider Name:Mae Gordon 07-25 09:30:00 AM, [address] [place] [address], [phone], Insurance Providers Payer Name Payer Address Payer Phone Insured Name Patient Relati onship to Insured Coverage Start Date Coverage End Date MEDICARE Part A and B [facility] [address] [place] [phone] JOSE HERNANDEZ self 2016 BS ALEXAN[address]U RENDON [address] [place] [address] [phone] JOSE HERNANDEZ self
--- OUTSIDE RECORDS SUMMARY | 2020-06-12 10:07 | CCD ---
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 Active 7248829 1 Problem Abnormal liver enzymes R74.8 Active 239490678 Problem 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 Active 1732037384 102 Problem Mixed hyperlipidemia E78.2 Active 562564651 ALLERGIES Allergen (clinical drug ingredient) Drug/Non Drug Allergy do cumented on EMR Reaction Allergy Type Onset Date Status diclofenac Voltaren([facility] Code:[address]-26) Rash Drug Allergy Active ENCOUNTERS from 1950 to 2020-03-22 Encounter Location Date Provider Diagnosis [address] [address] Mar, Mae Gordon Hypothyroidism E03.9 IMMUNIZATIONS Vaccine Route Administration Date Status Influenza [...] College Language: Question Answer Notes Languages spoken: Trinidadian Denominational: Question Answer Notes Denominational 21 Quaker Domestic Violence: Question Answer Notes Status: denies [...] Orally Daily Active PROCEDURES No Information RESULTS No Results REASON FOR VISIT rx MEDICAL (GENERAL) HISTORY Type Description Date Medical History HTN Medical History high cholesterol Medical History DM type II Medical History Epidermal cyst Medical History Osteoarthritis, generalized Medical History Carpal tunnel syndrome of right wrist Medical History Basal Cell Carcinoma removed 05/07 Surgical History left shoulder replacement (complete), Dr Kim English at [facility] April, Surgical History colonoscopy 11/01 Surgical History Basal Cell removed from right side cheek 04/2017 Hospitalization History chicken pox Goals Section No Information Health Concerns No Information MEDICAL EQUIPMENT No Information MENTAL STATUS No Information FUNCTIONAL STATUS No Information ASSESSMENTS Encounter Date Diagnosis Assessment Notes Treatment Notes Treatm ent Clinical Notes Mar, Hypothyroidism (ICD-10 - E03.9) PLAN OF TREATMENT Medication Medication Name Sig [...] Orally Once a day for 90 day(s) Next Appt Details Provider Name:Mae Bañueloserik, 07-25 09:30:00 AM, [address] [place], [address], Insurance Providers Payer Name Payer Address Payer Phone Insured Name Patient Relati onship to Insured Coverage Start Date Coverage End Date MEDICARE Part A and B [address] [facility] [address] [phone] JOSE HERNANDEZ self 2016 [place] [id number] [address] [facility] [id number] [phone] JOSE HERNANDEZ self
--- OUTSIDE RECORDS SUMMARY | 2020-06-12 10:08 | CCD ---
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 Name Role Phone [place], D Jose Unavailable Unavailable [place], D Jose Unavailable Unavailable [place], D Jose Unavailable Unavailable [place], D Jose Unavailable Unavailable [place], D Jose Unavailable Unavailable [place], D Jose Unavailable Unavailable [place], D Jose Unavailable Unavailable [place], D Jose Unavailable Unavailable [place], D Jose Unavailable Unavailable [place], D Jose Unavailable Unavailable [place], D Jose Unavailable Unavailable [place], D Jose Unavailable Unavailable [place], D Jose Unavailable Unavailable [place], D Jose Unavailable Unavailable [place], D Jose Unavailable Unavailable [place], D Jose Unavailable Unavailable [place], D Jose Unavailable Unavailable [place], D Jose Unavailable Unavailable [place], D Jose Unavailable Unavailable [place], D Jose Unavailable Unavailable [place], D Jose Unavailable Unavailable [place], D Jose Unavailable Unavailable [place], D Jose Unavailable Unavailable Re-disclosure Warning The records that you are about to access may contain information from federally-assisted alcohol or drug abuse programs. If such information is present, then the following federally mandated warning applies: This information has been disclosed to you from records protected by federal confidentiality rules (42 CFR part 2). The federal rules prohibit you from making any further disclosure of this information unless further disclosure is expressly permitted by the written consent of the person to whom it pertains or as otherwise permitted by 42 CFR part 2. A general authorization for the release of medical or other information is NOT sufficient for this purpose. The Federal rules restrict any use of the information to criminally investigate or prosecute any alcohol or drug abuse patient.The records that you are about to access may contain highly sensitive health information, the redisclosure of which is protected by Article 27-F of the [facility] Public Health law. If you continue you may have access to information: Regarding HIV / AIDS; Provided by facilities licensed or operated by the [facility] Office of Mental Health; or Provided by the [facility] Office for People With Developmental Disabilities. If such information is present, then the following [facility] mandated warning applies: This information has been disclosed to you from confidential records which are protected by state law. State law prohibits you from making any further disclosure of this information without the specific written consent of the person to whom it pertains, or as otherwise permitted by law. Any unauthorized further disclosure in violation of state law may result in a fine or usp sentence or both. A general authorization for the release of medical or other information is NOT sufficient authorization for further disc losure. Allergies and Adverse Reactions Type Description Substance Reaction Status Data Source(s ) Voltaren Voltaren Diclofenac Sodium 0.01 MG/MG Topical Gel [Voltaren] Rash Active eCW1 ([facility]) Encounters Encounter Providers Location Date Indications Data Source(s ) Office Visit, Est Pt., Level 3 PC [address] [place] [address] 05/23/2020 12:00:00 AM EST eCW1 ([facility]) Unknown [address] [facility], [facility] [address] 05/21/2020 12:00:00 AM EST eCW1 ([facility]) Outpatient Attender: Jose Pickens 04/09/2020 12:00: 00 AM [facility] Office Visit, Est Pt., Level 4 PC [address] [place] [address] 03/21/2020 12:00:00 AM EST eCW1 ([facility]) Unknown [address] [facility] [address] 03/21/2020 12:00:00 AM EST eCW1 ([facility]) Unknown [address] [facility] [address] 03/13/2020 12:00:00 AM EST eCW1 ([facility]) Outpatient Attender: Jose Pickens [id number] 02/07/2020 12:00:00 AM EDT Pain in unspecified [facility] Pain in unspecified hip Outpatient Referrer: Jose Pickens 02/07/2020 12:00:00 AM EDT Pain in unspecified [facility] Pain in unspecified hip Unknown [address] [facility] [address] 02/03/2020 12:00:00 AM EDT eCW1 ([facility]) [address] [address] 11/14/2019 12:00:00 AM EDT eCW1 ([facility]) [address] [address] 11/07/2019 12:00:00 AM EDT eCW1 ([facility]) [address] [address] 05/09/2019 12:00:00 AM EST eCW1 ([facility]) [address] [address] 05/06/2019 12:00:00 AM EST eCW1 ([facility]) [address] [address] 05/02/2019 12:00:00 AM EST eCW1 ([facility]) Immunizations Vaccine Date Status Description Data Source(s) influenza, recombinant, quadrIvalent,injectable, prese rvative free 03/07/2020 10:14:00 AM EST completed eCW1 ([facility]) influenza, recombinant, quadrIvalent,injectable, prese rvative free 03/07/2020 10:14:00 AM EST completed eCW1 ([facility]) influenza, recombinant, quadrIvalent,injectable, prese rvative free 03/07/2020 10:14:00 AM EST completed eCW1 ([facility]) influenza, recombinant, quadrIvalent,injectable, prese rvative free 03/07/2020 10:14:00 AM EST completed eCW1 ([facility]) INFLUENZA VIRUS VACCINE QUADRIVAL SPLIT 2020-21(65 YR UP)/PF 01/25/2020 12:00:00 AM EDT completed [facility] influenza, recombinant, quadrIvalent,injectable, prese rvative free 05/09/2019 04:23:00 PM EST completed eCW1 ([facility]) influenza, recombinant, quadrIvalent,injectable, prese rvative free 05/09/2019 04:23:00 PM EST completed eCW1 ([facility]) influenza, recombinant, quadrIvalent,injectable, prese rvative free 05/09/2019 04:23:00 PM EST completed eCW1 ([facility]) influenza, recombinant, quadrIvalent,injectable, prese rvative free 05/09/2019 04:23:00 PM EST completed eCW1 ([facility]) influenza, recombinant, quadrIvalent,injectable, prese rvative free 05/09/2019 04:23:00 PM EST completed eCW1 ([facility]) influenza, recombinant, quadrIvalent,injectable, prese rvative free 05/09/2019 04:23:00 PM EST completed eCW1 ([facility]) influenza, recombinant, quadrIvalent,injectable, prese rvative free 05/09/2019 04:23:00 PM EST completed eCW1 ([facility]) Medications Medication Brand Name Start Date Product Form Dose Route Admi nistrative Instructions Pharmacy Instructions Status Indications Reaction Description Data Source(s) 5 mg 05/22/2020 12:00:00 AM EST tablet 30 TAKE ONE TABLET BY MOUTH EVERY DAY TAKE ONE TABLET BY MOUTH EVERY DAY SOLD: 05/23/2020 [facility] 40 mg 05/15/2020 12:00:00 AM EST tablet 90 TAKE ONE TABLET BY MOUTH EVERY EVENING TAKE ONE TABLET BY MOUTH EVERY EVENING SOLD: 05/21/2020 [facility] Fenofibrate 48 MG Oral Tablet FENOFIBRATE NANOCRYSTALLIZED 0 05/14/2020 12:00:00 AM EST tablet 30 TAKE ONE TABLET BY MOUTH BRUCE TAKE ONE TABLET BY MOUTH EVERY DAY SOLD: 05/15/2020 [facility] 50 mg 05/14/2020 12:00:00 AM EST tablet 30 TAKE ONE TABLET BY MOUTH EVERY DAY TAKE ONE TABLET BY MOUTH EVERY DAY SOLD: 05/15/2020 [facility] 5 mg 04/23/2020 12:00:00 AM EST tablet 30 TAKE ONE TABLET BY MOUTH EVERY DAY TAKE ONE TABLET BY MOUTH EVERY DAY SOLD: 04/24/2020 [facility] 112 mcg 03/21/2020 12:00:00 AM EST tablet 90 TAKE ONE TABLET BY MOUTH EVERY MORNING ON AN EMPTY STOMACH TAKE ONE TABLET BY MOUTH EVERY MORNING O N AN EMPTY STOMACH SOLD: 03/24/2020 [facility] 5 mg 03/14/2020 12:00:00 AM EST tablet 30 TAKE ONE TABLET BY MOUTH EVERY DAY TAKE ONE TABLET BY MOUTH EVERY DAY SOLD: 03/21/2020 [facility] Fenofibrate 48 MG Oral Tablet FENOFIBRATE NANOCRYSTALLIZED 1 12:00:00 AM EDT tablet 30 TAKE ONE TABLET BY MOUTH BRUCE TAKE ONE TABLET BY MOUTH EVERY DAY SOLD: 02/16/2020 [facility] 50 mg 02/15/2020 12:00:00 AM EDT tablet 30 TAKE ONE TABLET BY MOUTH EVERY DAY TAKE ONE TABLET BY MOUTH EVERY DAY SOLD: 04/19/2020 [facility] 125 mcg 02/15/2020 12:00:00 AM EDT tablet 30 TAKE ONE TABLET BY MOUTH EVERY DAY TAKE ONE TABLET BY MOUTH EVERY DAY SOLD: 03/21/2020 [facility] 125 mcg 02/15/2020 12:00:00 AM EDT tablet 30 TAKE ONE TABLET BY MOUTH EVERY DAY TAKE ONE TABLET BY MOUTH EVERY DAY SOLD: 02/16/2020 [facility] Fenofibrate 48 MG Oral Tablet FENOFIBRATE NANOCRYSTALLIZED 1 12:00:00 AM EDT tablet 30 TAKE ONE TABLET BY MOUTH BRUCE TAKE ONE TABLET BY MOUTH EVERY DAY SOLD: 03/21/2020 [facility] 50 mg 02/15/2020 12:00:00 AM EDT tablet 30 TAKE ONE TABLET BY MOUTH EVERY DAY TAKE ONE TABLET BY MOUTH EVERY DAY SOLD: 03/21/2020 [facility] Fenofibrate 48 MG Oral Tablet FENOFIBRATE NANOCRYSTALLIZED 1 12:00:00 AM EDT tablet 30 TAKE ONE TABLET BY MOUTH BRUCE TAKE ONE TABLET BY MOUTH EVERY DAY SOLD: 04/19/2020 [facility] 50 mg 02/15/2020 12:00:00 AM EDT tablet 30 TAKE ONE TABLET BY MOUTH EVERY DAY TAKE ONE TABLET BY MOUTH EVERY DAY SOLD: 02/16/2020 [facility] 40 mg 02/08/2020 12:00:00 AM EDT tablet 90 TAKE ONE TABLET BY MOUTH EVERY EVENING TAKE ONE TABLET BY MOUTH EVERY EVENING SOLD: 02/16/2020 [facility] Metformin hydrochloride 1000 MG Oral Tablet 1,000 mg METFORM IN HCL 02/08/2020 12:00:00 AM EDT tablet 180 TAKE ONE TABLET BY MOUTH TWICE A DAY WITH MEALS TAKE ONE TABLET BY MOUTH TWICE A DAY WITH MEALS SOLD: 02/16/2020 [facility] Fenofibrate 48 MG Oral Tablet FENOFIBRATE NANOCRYSTALLIZED 0 11/23/2019 12:00:00 AM EDT tablet 30 TAKE ONE TABLET BY MOUTH BRUCE TAKE ONE TABLET BY MOUTH EVERY DAY SOLD: 12/23/2019 [facility] 50 mg 11/23/2019 12:00:00 AM EDT tablet 30 TAKE ONE TABLET BY MOUTH EVERY DAY TAKE ONE TABLET BY MOUTH EVERY DAY SOLD: 11/24/2019 [facility] 125 mcg 11/23/2019 12:00:00 AM EDT tablet 30 TAKE ONE TABLET BY MOUTH EVERY DAY TAKE ONE TABLET BY MOUTH EVERY DAY SOLD: 11/24/2019 [facility] 50 mg 11/23/2019 12:00:00 AM EDT tablet 30 TAKE ONE TABLET BY MOUTH EVERY DAY TAKE ONE TABLET BY MOUTH EVERY DAY SOLD: 01/25/2020 [facility] 50 mg 11/23/2019 12:00:00 AM EDT tablet 30 TAKE ONE TABLET BY MOUTH EVERY DAY TAKE ONE TABLET BY MOUTH EVERY DAY SOLD: 12/23/2019 [facility] 125 mcg 11/23/2019 12:00:00 AM EDT tablet 30 TAKE ONE TABLET BY MOUTH EVERY DAY TAKE ONE TABLET BY MOUTH EVERY DAY SOLD: 12/23/2019 [facility] 48 mg 11/23/2019 12:00:00 AM EDT tablet 30 TAKE ONE TABLET BY MOUTH EVERY DAY TAKE ONE TABLET BY MOUTH EVERY DAY SOLD: 11/24/2019 [facility] 125 mcg 11/23/2019 12:00:00 AM EDT tablet 30 TAKE ONE TABLET BY MOUTH EVERY DAY TAKE ONE TABLET BY MOUTH EVERY DAY SOLD: 01/25/2020 [facility] Fenofibrate 48 MG Oral Tablet FENOFIBRATE NANOCRYSTALLIZED 0 11/23/2019 12:00:00 AM EDT tablet 30 TAKE ONE TABLET BY MOUTH BRUCE RY DAY TAKE ONE TABLET BY MOUTH EVERY DAY SOLD: 01/25/2020 [facility] dapagliflozin 5 MG Oral Tablet [Farxiga] Farxiga 5 MG Oral Tablet Farxiga 5 MG Oral Tablet 11/11/2019 12:00:00 AM EDT 1 {tbl} Oral activ e Take 1 tablet by mouth daily [facility] Simvastatin 40 MG Oral Tablet Simvastatin 40 MG Oral T ablet (ZOCOR) Simvastatin 40 MG Oral Tablet (ZOCOR) 11/09/2019 12:00:00 AM EDT 40 mg Oral active Take 40 mg by mouth every evening [facility] Levothyroxine Sodium 0.125 MG Oral Tablet Levothyroxin e Sodium 125 MCG Levothyroxine Sodium 125 MCG 05/09/2019 12:00:00 AM EST active 1 tablet in the morning on an empty stomach eCW1 ([facility]) 125 mcg 05/09/2019 12:00:00 AM EST tablet 90 TAKE ONE TABLET BY MOUTH EVERY MORNING ON AN EMPTY STOMACH TAKE ONE TABLET BY MOUTH EVERY MORNING O N AN EMPTY STOMACH SOLD: 05/12/2019 [facility] 125 mcg 05/09/2019 12:00:00 AM EST tablet 90 TAKE ONE TABLET BY MOUTH EVERY MORNING ON AN EMPTY STOMACH TAKE ONE TABLET BY MOUTH EVERY MORNING O N AN EMPTY STOMACH SOLD: 08/12/2019 [facility] 5 mg 01/26/2019 12:00:00 AM EDT tablet 90 TAKE ONE TABLET BY MOUTH EVERY DAY TAKE ONE TABLET BY MOUTH EVERY DAY SOLD: 11/11/2019 [facility] 5 mg 01/26/2019 12:00:00 AM EDT tablet 90 TAKE ONE TABLET BY MOUTH EVERY DAY TAKE ONE TABLET BY MOUTH EVERY DAY SOLD: 05/09/2019 [facility] 150 mcg 01/26/2019 12:00:00 AM EDT tablet 90 TAKE ONE TABLET BY MOUTH EVERY MORNING ON EMPTY STOMACH TAKE ONE TABLET BY MOUTH EVERY MORNING O N EMPTY STOMACH SOLD: 05/09/2019 [facility] 5 mg 01/26/2019 12:00:00 AM EDT tablet 90 TAKE ONE TABLET BY MOUTH EVERY DAY TAKE ONE TABLET BY MOUTH EVERY DAY SOLD: 08/12/2019 [facility] 40 mg 12/22/2018 12:00:00 AM EDT tablet 84 TAKE ONE TABLET BY MOUTH EVERY EVENING TAKE ONE TABLET BY MOUTH EVERY EVENING SOLD: 11/11/2019 [facility] 1,000 mg 12/22/2018 12:00:00 AM EDT tablet 180 TAKE ONE TABLET BY MOUTH TWICE A DAY WITH MEALS TAKE ONE TABLET BY MOUTH TWICE A DAY WITH MEALS SOLD: 07/10/2019 [facility] Simvastatin 40 MG Oral Tablet SIMVASTATIN 12/22/2018 12:00:00 AM EDT tablet 90 TAKE ONE TABLET BY MOUTH EVERY EVENING TAKE ONE TABLET BY MO UTH EVERY EVENING SOLD: 07/10/2019 [facility] Metformin hydrochloride 1000 MG Oral Tablet 1,000 mg METFORM IN HCL 12/22/2018 12:00:00 AM EDT tablet 168 TAKE ONE TABLET BY MOUTH TWICE A DAY WITH MEALS TAKE ONE TABLET BY MOUTH TWICE A DAY WITH MEALS SOLD: 11/11/2019 [facility] 40 mg 12/22/2018 12:00:00 AM EDT tablet 33 TAKE ONE TABLET BY MOUTH EVERY EVENING TAKE ONE TABLET BY MOUTH EVERY EVENING SOLD: 10/14/2019 [facility] 1,000 mg 12/22/2018 12:00:00 AM EDT tablet 66 TAKE ONE TABLET BY MOUTH TWICE A DAY WITH MEALS TAKE ONE TABLET BY MOUTH TWICE A DAY WITH MEALS SOLD: 10/14/2019 [facility] Losartan Potassium 50 MG Oral Tablet LOSARTAN POTASSIUM 12:00:00 AM EDT tablet 90 TAKE ONE TABLET BY MOUTH BRUCE RY DAY TAKE ONE TABLET BY MOUTH EVERY DAY SOLD: 07/10/2019 [facility] 48 mg 09/17/2018 12:00:00 AM EDT tablet 90 TAKE ONE TABLET BY MOUTH EVERY DAY TAKE ONE TABLET BY MOUTH EVERY DAY SOLD: 07/10/2019 [facility] Simvastatin 10 MG Oral Tablet simvastatin (ZOCOR) 10 M G tablet simvastatin (ZOCOR) 10 MG tablet 07/16/2015 12:00:00 AM EDT ab [facility] sitagliptin 100 MG Oral Tablet [Januvia] JANUVIA 100 M G tablet JANUVIA 100 MG tablet 03/19/2015 12:00:00 AM EST 100 mg aborted 100 mg daily. [facility] Insurance Providers Payer name Policy type / Coverage type Policy ID Covered republican ID Covered republican's relationship to neff Policy Neff Plan Information [facility] [employer] [id number] SP [id number] MEDICARE [id number] SP [id number] [facility] [employer] [id number] SP [id number] MEDICARE A [id number] Self [id number] [facility] [id number] Self [id number] SELF PAY ONLY [id number] SP [id number] MEDICARE [id number] SP [id number] A MEDICARE [id number] SP [id number] A ANSI-Commercial [id number] ANSI-Medicare Part B [id number] ANSI-Medicare Part B [id number] ANSI-Commercial [id number] ANS-Medicare Part B [id number] ANSI-Commercial [id number] ANSI-Medicare Part B [id number] ANSI-Commercial [id number] [facility] [id number] SP [id number] [facility] B [id number] S [id number] [facility] [id number] SP [id number] [facility] [id number] SP [id number] Problems, Conditions, and Diagnoses Code Display Name Description Problem Type Effective Dates Data Source(s) E11.9 Diabetes mellitus type 2 Diabetes mellitus, type 2 Pro blem 03/21/2020 12:00:00 AM EST eCW1 ([facility]) Z87.066 [id number] Former smoker Problem 05/09/2019 12:00:00 AM EST eCW1 ([facility]) Z87.158 [id number] Former smoker Problem 05/09/2019 12:00:00 AM EST eCW1 ([facility]) M25.559 Pain in unspecified hip Pain in unspecified hip Diagno sis 02/07/2020 08:23:21 AM [facility] Surgeries/Procedures Procedure Description Date Indications Data Source(s) Office Visit, Est Pt., Level 2 FC 05/09/2019 12:00:00 AM EST eCW1 ([facility]) Office Visit, Est Pt., Level 4 PC 05/09/2019 12:00:00 AM EST eCW1 ([facility]) RIV4 VACC RECOMBINANT DNA IM 05/09/2019 12:00:00 AM ES T eCW1 ([facility]) Administration of influenza virus vaccine 05/09/2019 1 2:00:00 AM EST eCW1 ([facility]) VENIPUNCT, ROUTINE* 05/06/2019 12:00:00 AM EST eCW1 ([facility]) Results ID Date Data Source [facility] THYROID, SOFT TISSUE HEAD +NECK US 03/29/2020 12:00:00 A M EST eCW1 ([facility]) Name Value Range Interpretation Code Description Data Terri rce(s) Supporting Document(s) [facility] THYROID, SOFT TISSUE HEAD +NECK US eCW1 ([facility]) ID Date Data Source [id number] 02/07/2020 10:16:46 AM [facility] Name Value Range Interpretation Code Description Data Terri rce(s) Supporting Document(s) Progress Note [facility] DLVKQn2lOjOWBoDn16/EWIuvWNXye6LhHFicZHq7DRfpACBjT0XmCBN4tI2xOKY9KMzTGoYdExYrMHLf [facility] EyPhoSUmWoKEBuXlmXFkQjDByfUdvutZElIR3OcUC7RLSvL88zHCNoURZfH8VbKZHqTLR+Ng8NJIFicW HzFH9JWszX3L9ou4tVAe9lrU/DAAVaB/IJWRrRUWNQAgyt0KBbDvJn3Sysjd2rRTeWHlo5h2/hJWqGTy 3ClxjztZuLGk60p096G8CZfKB/e9B400Yya4Q/Vl/9 kJHBA/quz4o7Nxab65ds0lqBMreXKW+/CX0hdT6C8hei8NIhmdo0qSZI30bgCkUYFr97Av66y+P7aLpL 8y7HX1PNUg+vQV7T6cfxKKZoi1ne5cqw7mT34SgAXw4gJ81D8G9CJNFt9YTz4hPuKeALtzYlD4kEy74q tGhLeD/oGqX6p8I1eayOfsaJ4H6TqaOjj4moN6bvEX BWum9WaRZ7YP9+h4IK9D7S/MlH1kqLrFXiaepTD7F2FIaiqOiza32xlb2WvIa6nB17uRj3QMxSvHokrO GsqaJUj2dGLstlYBmIAn1d7Srp4Xxfkw2/OVIEDO+aejAq4Ls2rYJjDslTOgfaSK9qUioByYJrzWRSzQsgrX [file] ZNijVHgEtQYOsxAzJ8Jn6W1Jl11AAiROhT7nKtsCKPMqPVY9Y7NMfE9/UCPkR3cxHX6fEBjqG/+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 [file] ICAgICAgICAgICAgICAgICAgICAgICAgICAgICAgIC AgICAgICAgICAgICAgICAgICAgICAgICAgDQogICAgICAgICAgICAgICAgICAgICAgICAgICAgICAgIC AgICAgICAgICAgICAgICAgICAgICAgICAgICAgICAgICAgICAgICAgICAgICAgICAgICAgICAgICAgIC AgICAgICAgDQogICAgICAgICAgICAgICAgICAgICAg ICAgICAgICAgICAgICAgICAgICAgICAgICAgICAgICAgICAgICAgICAgICAgICAgICAgICAgICAgICAg ICAgICAgICAgICAgICAgICAgDQogICAgICAgICAgICAgICAgICAgICAgICAgICAgICAgICAgICAgICAg ICAgICAgICAgICAgICAgICAgICAgICAgICAgICAgIC AgICAgICAgICAgICAgICAgICAgICAgICAgICAgDQogICAgICAgICAgICAgICAgICAgICAgICAgICAgIC AgICAgICAgICAgICAgICAgICAgICAgICAgICAgICAgICAgICAgICAgICAgICAgICAgICAgICAgICAgIC AgICAgICAgICAgDQogICAgICAgICAgICAgICAgICAg ICAgICAgICAgICAgICAgICAgICAgICAgICAgICAgICAgICAgICAgICAgICAgICAgICAgICAgICAgICAg ICAgICAgICAgICAgICAgICAgICAgDQogICAgICAgICAgICAgICAgICAgICAgICAgICAgICAgICAgICAg ICAgICAgICAgICAgICAgICAgICAgICAgICAgICAgIC AgICAgICAgICAgICAgICAgICAgICAgICAgICAgICAgDQogICAgICAgICAgICAgICAgICAgICAgICAgIC AgICAgICAgICAgICAgICAgICAgICAgICAgICAgICAgICAgICAgICAgICAgICAgICAgICAgICAgICAgIC AgICAgICAgICAgICAgDQogICAgICAgICAgICAgICAg ICAgICAgICAgICAgICAgICAgICAgICAgICAgICAgICAgICAgICAgICAgICAgICAgICAgICAgICAgICAg ICAgICAgICAgICAgICAgICAgICAgICAgDQogICAgICAgICAgICAgICAgICAgICAgICAgICAgICAgICAg ICAgICAgICAgICAgICAgICAgICAgICAgICAgICAgIC PzMUVlCOEwTQYtFQCdEKGqFXYoRRUbGPZcMBOrSKHdCNPgYIp8Q0dfFMYjZDQmTD0gUIx3Kh1+DQoNCm MxQRW9qaNjpD3DCY5st7SaFTefZQGcq2FxXCy1YN7ROWSzMXojZJ6PQWerdh7UIRSuIDRrwETLl0omUy RgIMI1UKVjPweqMY6NDUNhV8jfkwDzCBMyGRCMWNyr YEHWKNawJWSCAEKnXBVsEfGdKKbiFP6Gm2LaxMD6RXd+Sm6VVH7qa7XlUCrqMnIzYV8hyu1IVFwYZaUx J7EpwlN3ARE1BYZpRk2YLIAmZJIcyCZdEYGlJNEBQkNjS4FyoI98EIMCCp3+LAoncxMaZtgBWiM2UKIa t5RfHIv4FD9ETOUrJKl6dSTrYPLvY9Fba3XnHq02AC RkGyciCbXnzgGicN2aTpUYzOKlFD9AVHS9ZTNrJsQsGnZiTwNrHBc9VpHwJW0fWLnuXL3XTBD6WUmjHK MwPBSbZ9sZMnHyRZGaHVWcrLxbXU5QPsHbJ6UybdGxpOSiOdQqOUWXVg3+BLccizIvWkxLMtU9KZUai2 NeUMm6ZT2TIQMwPYxeAO5KEWMxyW0dLSjkTV3FRbZg LQNeUPTMHzOgH95lxTGkPMe4L8CeAkQwVGOzPfcmZAWcNJjaGkWrYOHkLaIfVNyxGN2+ID4+SAjsBE7J EIwkamHyBOToSt2FHEXgKXTtUG7oKCYmCAJlR4P7kWluJDHNDzJeT3yngphlVO9bVSGgF903aCmgjlYf NCGfKWGcOf7MBLLeWNM4NAXfqUPaYbBqNHCVWKtxSU 6IqBPlJEP5aN0tBIgwGQIlCFKvJ3aOUqUlhGzvDD31fAvnriQyhMEuHYp+Pt0WYD6ul2UlXMh6jcVhMU qlBNQ5HXiuRDTjFNQkGGHpOPL6IGA0OYFBNlAvWNFgMESxRBwuVKQtTYIwcn4IGGUbTYK9SItoXdGrXM FcPBVcOQilYLAuOSCyZGQ0FUFtMJPmXY8CUfXcEIFg AGNrTXmuKIEyQYJyfe5MMCOyLFZyCmRzERDuQCIaDTOmUNplYNUwVTElGSO7QXEsAGBnXT5SCvQqLXRk HGX1SKWkQKNxYTFlff4DWMObIVQlHyo0ZIViEMRoBABqRZigHOYxIBV5Wuf6ULJzRXLeYC8DZuImCRJn XAh3XNPfNABvEQIqjk8UZUZbYZIiIMJ3YaFdCWPrIG BfDJyeOOXySQPlECRyENRbDFLjWE1OSnBaHUYqTHHpBeBlUBFlIRVwfv7WVVLbJAUeGbL0OGRyKDCnMN WdGKkkVQEzRIOxIrNrSGGpVRJxMY4QZnSgNJXqUKH9VJGkKPLeBKZzmg8USDMnYUYkXvrrHJJjIJVcQH MvTMcmPYAnRIA6YHabRHDbBXIwIE0ISwAgXPKeGBHz OWTrGLLxLOKrko1ENIXtEAD5TmZhFxByUJWbJEXpUGbbGEVeEBMlJYYoLWWbAXMwHW2UAsHvZTAlVKY8 ORLbIGLhQKBpfm3JVSAzNNI4OWfnRILiDPGxTJPyKTidERRzKZH7QwZ8MSIaJOZtIP6PMxPuJXBgDHX0 KnSeZIRyTGLboo5ETMGcMIL9MdTpXLQsRDKpHBGuRJ haBDKgHMEvILT7DPJnDFVsJK9NDbGjTNIcXLNgPFMfXSRlGZBvbf0KXTHvPPW0RAO8ORFcAVGkVCYsIS lpPFUdVGEaCyS9OAZoUYDdUO2PCoCkPVJcSTI5PZLmGXCyADVuah7WISMdGQD0ArPcPVAtZUZyQLZxUH kpXHUpHTCpQub1BLBrPODdYU4OJcDbGUJtHZC3CBEr CGHgMRFcxy5PMXYjVHY4Vcv0GhAyHNRgUEViLSa2gjOeeYVdKPy6XE6UZ7ImyfOlLkFEIy2Dy578MCE6 RLDrJi0BQ9koLu8yWFXlWRZVTl7XDIw2NJU1NCU6UIAhZOzfBwA3ZCL3XbW0ShDuNkZ5VJRhHdH+IDxk BDX1ENx7UdZiMEBbEpz3UsBsMvQgC2J0ReF5J9I9VB 5sVKGNEw4+THdbwGUsbYaxMQJXEcK2DWSbHTgcFJQJYk0F ID Date Data Source [id number] 02/07/2020 09:52:56 AM EDT [facility] XR HIP- UNILAT, 2-3 VIEWS [id number] RE SULTInterpreted by:Jose Pickens MDTechnique: Standing AP pelvis and AP and lateral of left hipComparison: NoneFindings: Left hip - Very mild joint space narrowing. Some sclerosis of the acetabulum. Slight lateral osteophyte about the acetabulum.No prominent AIIS is visualized Acetabular depth normal No other soft tissue or bony lesions identified. No fracture or dislocation.Impression:1. Early degenerative change left hipThis document has been electronically signed by Jose Pickens MD on 02/07/2020 9:50 AM Name Value Range Interpretation Code Description Data Terri rce(s) Supporting Document(s) ID Date Data Source LIPID PANEL (CARDIAC RISK) 05/06/2019 12:00:00 AM EST eCW1 ( [facility]) Name Value Range Interpretation Code Description Data Terri rce(s) Supporting Document(s) Triglyceride [Mass/volume] in Serum or Plasma by calculation 262 <150 TRIGLYCERIDES LEVEL eCW1 ([facility]) Cholesterol [Moles/volume] in Serum or Plasma 140 <200 CHOLESTEROL LEVEL eCW1 ([facility]) Cholesterol in LDL [Mass/volume] in Serum or Plasma by calculation 54 <100 LDL CHOLESTEROL eCW1 ([facility]) 4.117 <5 CHOLESTEROL RISK RATIO eCW1 ([facility]) Cholesterol in HDL [Moles/volume] in Serum or Plasma 34 >40 HDL CHOLESTEROL eCW1 ([facility]) 106 NON-HDL-C eCW1 ([facility]) ID Date Data Source [id number] 05/06/2019 12:00:00 AM EST eCW1 ([facility]) Name Value Range Interpretation Code Description Data Terri rce(s) Supporting Document(s) Hemoglobin A1c/Hemoglobin.total in Blood 7.4 HEMOGLOBIN A1c eCW1 ([facility]) ID Date Data Source FREE T4 & TSH PANEL 05/06/2019 12:00:00 AM EST eCW1 ([facility]) Name Value Range Interpretation Code Description Data Terri rce(s) Supporting Document(s) 0.087 0.358-3.740 THYROID STIMULATING HORM ONE eCW1 ([facility]) 1.35 0.76-1.46 FREE T4 eCW1 ([facility]) ID Date Data Source Comprehensive Metabolic Profile (CMP) 05/06/2019 12:00:00 AM EST eCW1 ([facility]) Name Value Range Interpretation Code Description Data Terri rce(s) Supporting Document(s) 145 70-100 GLUCOSE, FASTING eCW1 ([facility]) 0.83 0.70-1.30 CREATININE FOR GFR eCW1 ([facility]) 19 7-18 BLOOD UREA NITROGEN eCW1 ([facility]) > 60.0 >49 GLOMERULAR FILTRATION RATE eCW 1 ([facility]) 139 136-145 SODIUM LEVEL eCW1 ([facility]) 4.5 3.5-5.1 POTASSIUM SERUM eCW1 ([facility]) 100 98-107 CHLORIDE LEVEL eCW1 ([facility]) 29 21-32 CARBON DIOXIDE LEVEL eCW1 ([facility]) 43 7-37 AST/SGOT eCW1 ([facility]) 61 45-117 ALKALINE PHOSPHATASE eCW1 ([facility]) 9.7 8.8-10.2 CALCIUM LEVEL eCW1 ([facility]) 55 12-78 ALT/SGPT eCW1 ([facility]) 1.39 1.00-1.93 ALBUMIN/GLOBULIN RATIO eCW1 ([facility]) 7.4 6.4-8.2 TOTAL PROTEIN eCW1 ([facility]) 0.7 0.2-1.0 BILIRUBIN,TOTAL eCW1 ([facility]) 4.3 3.2-5.2 ALBUMIN eCW1 ([facility]) ID Date Data Source CBC with Differential 05/06/2019 12:00:00 AM EST eCW1 ([facility]) Name Value Range Interpretation Code Description Data Terri rce(s) Supporting Document(s) 6.8 4.0-10.0 WHITE BLOOD COUNT eCW1 ([facility]) 16.7 13.5-17.5 HEMOGLOBIN eCW1 ([facility]) 49.5 42.0-52.0 HEMATOCRIT eCW1 ([facility]) 5.12 4.30-6.10 RED BLOOD COUNT eCW1 ([facility]) 96.7 80.0-96.0 MEAN CORPUSCULAR VOLUME e CW1 ([facility]) 11.8 11.5-14.5 RED CELL DISTRIBUTION WID TH eCW1 ([facility]) 32.6 27.0-33.0 MEAN CORPUSCULAR HEMOGLOB IN eCW1 ([facility]) 157 150-450 PLATELET COUNT, AUTOMATED eCW1 ([facility]) 33.7 32.0-36.5 MEAN CORPUSCULAR HGB CONC eCW1 ([facility]) 10.6 0.0-5.0 MONO % eCW1 ([facility]) 54.6 36.0-66.0 NEUTROPHILS % eCW1 ([facility]) 29.7 24.0-44.0 LYMPH % eCW1 ([facility]) 3.1 0.0-3.0 EOS % eCW1 ([facility]) 2.0 1.5-5.0 LYMPH # eCW1 ([facility]) 1.0 0.0-1.0 BASO % eCW1 ([facility]) 3.7 1.5-8.5 NEUTROPHILS # eCW1 ([facility]) 0.7 0.0-0.8 MONO # eCW1 ([facility]) 0.2 0.0-0.5 EOS # eCW1 ([facility]) 0.1 0.0-0.2 BASO # eCW1 ([facility]) Procedure Social History Code Duration Value Status Description Data Source(s ) Smoking 05/23/2020 12:00:00 AM EST Former Smoker completed Former Smoker eCW1 ([facility]) Smoking 05/23/2020 12:00:00 AM EST Former Smoker completed Former Smoker eCW1 ([facility]) Smoking 03/21/2020 12:00:00 AM EST Former Smoker completed Former Smoker eCW1 ([facility]) Smoking 03/21/2020 12:00:00 AM EST Former Smoker completed Former Smoker eCW1 ([facility]) Alcohol intake 02/07/2020 12:00:00 AM EDT Current drinker of al cohol (finding) completed Current drinker of alcohol (finding) [facility] Tobacco use and exposure 02/07/2020 12:00:00 AM EDT Never used co mpleted Never used [facility] Cigarettes smoked current (pack per day) - Reported 02/07/20 20 12:00:00 AM EDT UNK completed [facility] Smoking 02/07/2020 12:00:00 AM EDT Current some day smoker com pleted Current some day smoker [facility] Smoking 05/09/2019 12:00:00 AM EST Former Smoker completed Former Smoker eCW1 ([facility]) Smoking 05/09/2019 12:00:00 AM EST Former Smoker completed Former Smoker eCW1 ([facility]) Vital Signs ID Date Data Source UNK Name Value Range Interpretation Code Description Data Source(s) Diastolic blood pressure 80 mm[Hg] 80 mm[Hg] eCW1 ([facility]) Systolic blood pressure 128 mm[Hg] 128 mm[Hg] e CW1 ([facility]) Body temperature 98 [degF] 98 [degF] eCW1 ([facility]) Respiratory rate 18 /min 18 /min eCW1 ([facility]) Heart rate 90 /min 90 /min eCW1 ([facility]) Body mass index (BMI) [Ratio] 26.07 kg/m2 26.07 kg/m2 W1 ([facility]) Body height 66.5 [in_i] 66.5 [in_i] eCW1 ([facility]) Body weight 164 [lb_av] 164 [lb_av] eCW1 ([facility]) Diastolic blood pressure 78 mm[Hg] 78 mm[Hg] eCW1 ([facility]) Systolic blood pressure 128 mm[Hg] 128 mm[Hg] e CW1 ([facility]) Body temperature 98.3 [degF] 98.3 [degF] eCW1 ( [facility]) Respiratory rate 18 /min 18 /min eCW1 ([facility]) Heart rate 77 /min 77 /min eCW1 ([facility]) Body mass index (BMI) [Ratio] 24.80 kg/m2 24.80 kg/m2 W1 ([facility]) Body height 66.5 [in_i] 66.5 [in_i] eCW1 ([facility]) Body weight 156 [lb_av] 156 [lb_av] eCW1 ([facility]) Diastolic blood pressure 70 mm[Hg] 70 mm[Hg] eCW1 ([facility]) Systolic blood pressure 132 mm[Hg] 132 mm[Hg] e CW1 ([facility]) Body temperature 97.9 [degF] 97.9 [degF] eCW1 ( [facility]) Respiratory rate 18 /min 18 /min eCW1 ([facility]) Heart rate 65 /min 65 /min eCW1 ([facility]) Body mass index (BMI) [Ratio] 27.02 kg/m2 27.02 kg/m2 eCW1 ([facility]) Body height 66.5 [in_us] 66.5 [in_us] eCW1 ([facility]) Body weight Measured 170 [lb_av] 170 [lb_av] eC W1 ([facility]) ID Date Data Source [id number] 02/07/2020 10:16:46 AM [facility] Name Value Range Interpretation Code Description Data Source(s) WEIGHT RECORDED 170 lb 170 lb [facility] Body height Measured 66.5 in 66.5 in [facility] Patient Treatment Plan of Care Planned Activity Planned Date Details Description Data Source (s) dapagliflozin 5 MG Oral Tablet [Farxiga] 11/11/2019 12:00:00 AM [facility] Simvastatin 40 MG Oral Tablet 11/09/2019 12:00:00 AM [facility] Levothyroxine Sodium 0.125 MG Oral Tablet 05/09/2019 12:00:00 AM ES T eCW1 ([facility]) Simvastatin 10 MG Oral Tablet 07/16/2015 12:00:00 AM [facility] sitagliptin 100 MG Oral Tablet [Januvia] 03/19/2015 12:00:00 AM [facility]
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
[2020-06-12] MEDS ORDERED: IBUP-1022 PO (11:13)
--- OUTSIDE RECORDS SUMMARY | 2020-06-12 11:23 | CCD ---
Author Author [facility] Organization [facility] Address Unknown Phone Unavailable Care Team Providers Care Billing Clinician Name Role Phone [place], D Jose Unavailable Unavailable [place], D Jose Unavailable Unavailable [place], D Jose Unavailable Unavailable [place], D Jose Unavailable Unavailable [place], D Jose Unavailable Unavailable [place], D Jose Unavailable Unavailable [place], D Jose Unavailable Unavailable [place], D Jose Unavailable Unavailable [place], D Jose Unavailable Unavailable [place], D Jose Unavailable Unavailable [place], D Jose Unavailable Unavailable [place], D Jose Unavailable Unavailable [place], D Jose Unavailable Unavailable [place], D Jose Unavailable Unavailable [place], D Jose Unavailable Unavailable [place], D Jose Unavailable Unavailable [place], D Jose Unavailable Unavailable [place], D Jose Unavailable Unavailable [place], D Jose Unavailable Unavailable [place], D Jose Unavailable Unavailable [place], D Jose Unavailable Unavailable [place], D Jose Unavailable Unavailable [place], D Jose Unavailable Unavailable Re-disclosure Warning The [...] is protected by Article 27-F of the [facility] Public Health law. If you continue you may have access to information: Regarding HIV / AIDS; Provided by facilities licensed or operated by the [facility] Office of Mental Health; or Provided by the [facility] Office for People With Developmental Disabilities. If such information is present, then the following [facility] mandated warning applies: This information has been [...] law may result in a fine or half-way sentence or both. A general authorization for the release of medical or other information is NOT sufficient authorization for further disc losure. Allergies and Adverse Reactions Type Description Substance Reaction Status Data Source(s ) Voltaren Voltaren Diclofenac Sodium 0.01 MG/MG Topical Gel [Voltaren] Rash Active [facility] Encounters Encounter Providers Location Date Indications Data Source(s ) Office Visit, Est Pt., Level 3 PC [address] [place] [address] 05/23/2020 12:00:00 AM EST eCW1 ([facility]) Unknown [address] [facility], [facility] [address] 05/21/2020 12:00:00 AM EST eCW1 ([facility]) Outpatient Attender: Jose Pickens 04/09/2020 12:00: 00 AM [facility] Office Visit, Est Pt., Level 4 PC [address] [place] [address] 03/21/2020 12:00:00 AM EST eCW1 ([facility]) Unknown [address] [facility] [address] 03/21/2020 12:00:00 AM EST eCW1 ([facility] [place] [address] [facility] [address] 03/13/2020 12:00:00 AM EST eCW1 [facility]) Outpatient Attender: Jose Pickens [id number] 02/07/2020 12:00:00 AM EDT Pain in unspecified [facility] Pain in unspecified hip Outpatient Referrer: Jose Pickens 02/07/2020 12:00:00 AM EDT Pain in unspecified [facility] Pain in unspecified hip [place] [address] [facility] [address] 02/03/2020 12:00:00 AM EDT eCW1 ([facility]) [address] [address] 11/14/2019 12:00:00 AM EDT eCW1 ([facility]) [address] [address] 11/07/2019 12:00:00 AM EDT eCW1 ([facility]) [address] [address] 05/09/2019 12:00:00 AM EST eCW1 ([facility]) [address] [address] 05/06/2019 12:00:00 AM EST eCW1 ([facility]) [address] [address] 05/02/2019 12:00:00 AM EST eCW1 ([facility]) Immunizations Vaccine Date Status Description Data Source(s) influenza, recombinant, quadrIvalent,injectable, prese rvative free 03/07/2020 10:14:00 AM EST completed eCW1 ([facility]) influenza, recombinant, quadrIvalent,injectable, prese rvative free 03/07/2020 10:14:00 AM EST completed eCW1 ([facility]) influenza, recombinant, quadrIvalent,injectable, prese rvative free 03/07/2020 10:14:00 AM EST completed eCW1 ([facility]) influenza, recombinant, quadrIvalent,injectable, prese rvative free 03/07/2020 10:14:00 AM EST completed eCW1 ([facility]) INFLUENZA VIRUS VACCINE QUADRIVAL SPLIT 2020-21(65 YR UP)/PF 01/25/2020 12:00:00 AM EDT completed [facility] influenza, recombinant, quadrIvalent,injectable, prese rvative free 05/09/2019 04:23:00 PM EST completed eCW1 ([facility]) influenza, recombinant, quadrIvalent,injectable, prese rvative free 05/09/2019 04:23:00 PM EST completed eCW1 ([facility]) influenza, recombinant, quadrIvalent,injectable, prese rvative free 05/09/2019 04:23:00 PM EST completed eCW1 ([facility]) influenza, recombinant, quadrIvalent,injectable, prese rvative free 05/09/2019 04:23:00 PM EST completed eCW1 ([facility]) influenza, recombinant, quadrIvalent,injectable, prese rvative free 05/09/2019 04:23:00 PM EST completed eCW1 ([facility]) influenza, recombinant, quadrIvalent,injectable, prese rvative free 05/09/2019 04:23:00 PM EST completed eCW1 ([facility]) influenza, recombinant, quadrIvalent,injectable, prese rvative free 05/09/2019 04:23:00 PM EST completed eCW1 ([facility]) Medications Medication Brand Name Start Date [...] e Take 1 tablet by mouth daily [facility] Simvastatin 40 MG Oral Tablet Simvastatin 40 MG Oral T ablet (ZOCOR) Simvastatin 40 MG Oral Tablet (ZOCOR) 11/09/2019 12:00:00 AM EDT 40 mg Oral active Take 40 mg by mouth every evening [facility] Levothyroxine Sodium 0.125 MG Oral Tablet Levothyroxin e Sodium 125 MCG Levothyroxine Sodium 125 MCG 05/09/2019 12:00:00 AM EST active 1 tablet in the morning on an empty stomach [facility] 125 mcg 05/09/2019 12:00:00 AM EST [...] MG tablet 07/16/2015 12:00:00 AM EDT ab [facility] sitagliptin 100 MG Oral Tablet [Januvia] JANUVIA 100 M G tablet JANUVIA 100 MG tablet 03/19/2015 12:00:00 AM EST 100 mg aborted 100 mg daily. [facility] Insurance Providers Payer name Policy type / Coverage type Policy ID Covered alliance party ID Covered alliance party's relationship to neff Policy Neff Plan Information [facility] [employer] [id number] SP [id number] MEDICARE [id number] SP [id number] [id number] [facility] [employer] [id number] SP [id number] MEDICARE A [id number] Self [id number] [id number] [facility] [id number] Self [id number] SELF PAY ONLY [id number] SP [id number] MEDICARE [id number] SP [id number] A MEDICARE [id number] SP [id number] A ANSI-Commercial [id number] ANSI-Medicare Part [id number] ANSI-Medicare Part B [id number] ANSI-Commercial [id number] ANS-Medicare Part B [id number] ANSI-Commercial [id number] ANSI-Medicare Part B [id number] ANSI-Commercial [id number] [facility] [id number] SP [id number] [facility] B [id number] S [id number] [facility] [id number] SP [id number] [facility] [id number] SP [id number] Problems, Conditions, and Diagnoses Code Display Name Description Problem Type Effective Dates Data Source(s) E11.9 Diabetes mellitus type 2 Diabetes mellitus, type 2 Pro blem 03/21/2020 12:00:00 AM EST [facility] Z87.001 [id number] Former smoker Problem 05/09/2019 12:00:00 AM EST [facility] Z87.269 [id number] Former smoker Problem 05/09/2019 12:00:00 AM EST [facility]) M25.559 Pain in unspecified hip Pain in unspecified hip Diagno sis 02/07/2020 08:23:21 AM [facility] Surgeries/Procedures Procedure Description Date Indications Data Source(s) Office Visit, Est Pt., Level 2 FC 05/09/2019 12:00:00 AM EST [facility] Office Visit, Est Pt., Level 4 PC 05/09/2019 12:00:00 AM EST [facility]CW1 [facility]) RIV4 VACC RECOMBINANT DNA IM 05/09/2019 12:00:00 AM ES T eCW[facility]) Administration of influenza virus vaccine 05/09/2019 1 2:00:00 AM EST [facility] VENIPUNCT, ROUTINE* 05/06/2019 12:00:00 AM EST [facility]CW1 [facility]) Results ID Date Data Source [facility] THYROID, SOFT TISSUE HEAD +NECK US 03/29/2020 12:00:00 A M EST [facility] Name Value Range Interpretation Code Description Data Terri rce(s) Supporting Document(s) [facility] THYROID, SOFT TISSUE HEAD +NECK US eCW1 [facility]) ID Date Data Source [id number] 02/07/2020 10:16:46 AM [facility] Name Value Range Interpretation Code Description Data Terri rce(s) Supporting Document(s) Progress Note [facility] LJRLGs3dNkUNYjPo35/HHOdiNXKrx1BfWPupWYq1MCdtSDWzG7NzHWA3kE9iIUT0GYdYQfAbDsTyXMCa [facility] LoWbrMVrTnQTAbYlyXGmHiGDglAknbeEWfGK7DfTS5IBSjD41bSKAdCOKrP0WbMDUgHAU+Yh1QENDtgS EhWL1SMsmW3F8md3qICl6xzP/DAAVaB/GXYBdDSNCWYuts5UOrQlTj4Pbwua6wRTeOJzd6t6/hJWqGTy 6ThiewyMkAZo36v054L4YKwVS/g2I179Dtz9T/Vl/9 kJHBA/jci1c2Pyhm16sy5emGBthHMK+/IG4giA4E9nve1CKgfby2uRKT87crKyDOZp49Xf05t+P7aLpL 7e6BG4LGVl+bQK6Z5clwJWMuv8zc4qpd5pY75AfJFe4hL36J6J5SSMMi6RNz9jTqFySMjrTjX0lFi67n tGhLeD/rWlV1x6B4ddgFjdmS4R2CgnKny8gmQ9joQT FMfv7FaFO8LO1+j4JL7K8Z/EkA4eqJjWPquluMH8F4EZmraNobb70zxl5QyWi9bQ45xBu2ZGnStBtzoH SrbfIDb0aXXakrVEhKQk5d5Zjq7Vbwac7/OVIEDO+mljEt0Db1pGSlAtiFLbnuQW0gVbaNrQNfwIMFnZorhS [file] ATsyBJdFhCYOucHrJ0Ms8Q9Oh47BUfPBkY6jSurOBHCvCJU0N1JBxM6/NGQrH4bvMB9cYLgjR/+GRANTS OFFICER+J [file] ICAgICAgICAgICAgICAgICAgICAgICAgICAgICAgIC AgICAgICAgICAgICAgICAgICAgICAgICAgDQogICAgICAgICAgICAgICAgICAgICAgICAgICAgICAgIC AgICAgICAgICAgICAgICAgICAgICAgICAgICAgICAgICAgICAgICAgICAgICAgICAgICAgICAgICAgIC AgICAgICAgDQogICAgICAgICAgICAgICAgICAgICAg ICAgICAgICAgICAgICAgICAgICAgICAgICAgICAgICAgICAgICAgICAgICAgICAgICAgICAgICAgICAg ICAgICAgICAgICAgICAgICAgDQogICAgICAgICAgICAgICAgICAgICAgICAgICAgICAgICAgICAgICAg ICAgICAgICAgICAgICAgICAgICAgICAgICAgICAgIC AgICAgICAgICAgICAgICAgICAgICAgICAgICAgDQogICAgICAgICAgICAgICAgICAgICAgICAgICAgIC AgICAgICAgICAgICAgICAgICAgICAgICAgICAgICAgICAgICAgICAgICAgICAgICAgICAgICAgICAgIC AgICAgICAgICAgDQogICAgICAgICAgICAgICAgICAg ICAgICAgICAgICAgICAgICAgICAgICAgICAgICAgICAgICAgICAgICAgICAgICAgICAgICAgICAgICAg ICAgICAgICAgICAgICAgICAgICAgDQogICAgICAgICAgICAgICAgICAgICAgICAgICAgICAgICAgICAg ICAgICAgICAgICAgICAgICAgICAgICAgICAgICAgIC AgICAgICAgICAgICAgICAgICAgICAgICAgICAgICAgDQogICAgICAgICAgICAgICAgICAgICAgICAgIC AgICAgICAgICAgICAgICAgICAgICAgICAgICAgICAgICAgICAgICAgICAgICAgICAgICAgICAgICAgIC AgICAgICAgICAgICAgDQogICAgICAgICAgICAgICAg ICAgICAgICAgICAgICAgICAgICAgICAgICAgICAgICAgICAgICAgICAgICAgICAgICAgICAgICAgICAg ICAgICAgICAgICAgICAgICAgICAgICAgDQogICAgICAgICAgICAgICAgICAgICAgICAgICAgICAgICAg ICAgICAgICAgICAgICAgICAgICAgICAgICAgICAgIC NkHSWkCGYjIOSpPMCtYJEzAEWjCSViFVMiKFBpJNDcOVMvXOn2O1vlWRVsUAZoVZ2kDWd1Dz8+DQoNCm KuLVQ3aiJxwV1IST4lr2PeOCnhQXOcc9PwDUd6XP6QQYIwRLobBK3CMLmmcv0VFYLtEUOwbSWSw0vnUi PdZGL6ZMVxRnwtAW1GBDSlN5twhuUwIROqRLNMYTne BTIMOXotILLVUKToHZIvPxQaXUtcGA9Hz9EgkBO3HQv+Oz9FFQ2ia3SgECyhBjWdJC7lib5NSChBLmTa R3OmhgG6TLT0QLCaZy2ZVFLkCQWzpOSiUGKqHFLUYbOnV6TuwB05OHDRYq1+PYgikrGjPjfOImV8DXJi q6QbITf4HU9ENHOjZYy7rYSaCDPeB0Oyu6HxCa84KE OiLarfVnEbtqRxjN6mJnBNeVSmFY3AIAS2GSYhIqDpJsFpQnNlTNf4ZaEzIH1fQWfbHJ3LBMN3TUhhWT QiWRQhK3lZUcYdYYYnMPRdbMfkNP7KSjBfC2WlvqVkjDJxKuNeLUSMUn8+FMeykaLnAhoFCcU3IKRfm1 LeELf9CX3IEETaPNobKR2QSWFnwH1uFYmsZK5WGoZh CBLpKTWMSeZnW26hpISxTGi4L5CeEkZiRBEzKiijYARvMWhkFzJtEYKzIrPqFLlpOA3+ID4+GLdnMK7Y WFsuojZpTWRmYq0HPLWeBWHyJF9yUBMbKBGaK9S2fZgaZNHTLwKtV1ikpsbcWP0hNYUaB214wHiudkIt QIXgPLRfMc5LJNJaFHL8BBMuxFBdGxWhBEWBKVugBV 2HzVDiYOA2gT6dPPgxVRYjATQjC9vMJvJhtLknHD66vDugizUfbSAsAMi+Jh5FNB5an2NjHZt1irKsYG oyERD7FMukNICeEBCcYZTwVZB2KLD5HLEOUyBvSXMlMGFfONqzKNSeBRRose9EJFHyAQT0QRzkRnDgEJ SmXMZfLNudPZYvTRUoDBA6LSAkCOGkWP9MMlOpCQLe ZIAtWGwcBWSkGYBpoc4SVEKzRDZzZnHlKQByGBFzQLAvJZahQEOkJMSvUDE3FRMnIPVdRL8YBrHpYUOg WBY8QEIgHGKvQMOpvx9ETYVvACTtAyq6FRXxSUNfWIUxCEhcHFBpNGR1Umd3YFIpHAPoBU4YWsSmUTOc SAo6MVBcXUNgVWXjdh8TTPIlAKHbVDE9FfLbKQWjIK DwGVifVZHiWNIhCIMtARJpRXEnMR3KPiOeGHBlTMGqCeOsQCNoPDHbzn0CYPZuPPKsHqZ9OFRhEMEqUX EaAWtaGASaIPObBgLtIDJhCZEyJM8VFuZfFFLhQRL6IAOnQXAzQCZyzd7NIQAlXRViFhyrCUNyHTVcLT RwCKivCBIkHST4ZDdyOLKhTHKcLJ7HUyXoMEUbAZNl IBIdLGQiYOPmxz5PKFOsLXB8VqGcCpViABUkIHIlQKsbCPAlXKRaKZYtJPKvQEBmZP9SXqAvKINnBME8 AERrHKVtMPGdtu3SFKHiBNB0IZxcDGErTZBnYMXkUQbmAWLrWMF0QzG9JIYqVUHlHD9DFxCdCGWiUZI4 SwZxGMOnZRIfhu8JTKChXMQ2ReDmZRPkJFOeTFLhPZ znWYYdJSTyJPZ9YJLcMYDlDO9RQqDyQIUrUPUpRMUvXCQnGHDvwh4QFNKmYPU6SSS7RYYzGPEiBZUrIA abXTYnSUYyPwF9EUEwDXEdVE8VOvFxANEvNAV3ANWpQRAbBWWkos3UASOpKTV8OqMeMBEfIQIzMQGoQC naZYYyDBJuEqj2NWBrEXTzZO6YXnPxYUBzGLY7ZFSs RYKoPQUfln0JAKIaJWL1Rbq9NlRhHPThJAWqVOy2uhCyeDQsQKj0WY8JZ9BjupXaAeEMKn5Dz117CWF2 EJJcYc5WH9plLh9mQXCqTCFJXp5VPDk6VVW8OCG0MHDhJLuiUeC2VCX3ZwI1EsLyJyJ2WWBcXcJ+IDxk JKS5KAi3FcXuDKCpTxp0AzTpIxIyC4L5WzP4E5V9LT 2uBZTKSb9+WDwerUHsmNrdWNFTLmR3RGQtSTwpVVWZQu2H ID Date Data Source [id number] 02/07/2020 09:52:56 AM EDT [facility] XR HIP- UNILAT, 2-3 VIEWS [id number] RE SULTInterpreted by:Jose Pickens MDTechnique: Standing AP [...] RISK) 05/06/2019 12:00:00 AM EST [facility] Name Value Range Interpretation Code Description Data Terri rce(s) Supporting Document(s) Triglyceride [Mass/volume] in Serum or Plasma by calculation 262 <150 TRIGLYCERIDES LEVEL eCW1 ([facility]) Cholesterol [Moles/volume] in Serum or Plasma 140 <200 CHOLESTEROL LEVEL eCW1 ([facility] Cholesterol in LDL [Mass/volume] in Serum or Plasma by calculation 54 <100 LDL CHOLESTEROL eCW1 ([facility]) 4.117 <5 CHOLESTEROL RISK RATIO eCW1 ([facility]) Cholesterol in HDL [Moles/volume] in Serum or Plasma 34 >40 HDL CHOLESTEROL eCW1 [facility]) 106 NON-HDL-C eCW1 ([facility]) ID Date Data Source [id number] 05/06/2019 12:00:00 AM EST eCW1 ([facility]) Name Value Range Interpretation Code Description Data Terri rce(s) Supporting Document(s) Hemoglobin A1c/Hemoglobin.total in Blood 7.4 HEMOGLOBIN A1c eCW1 ([facility]) ID Date Data Source FREE T4 & TSH PANEL 05/06/2019 12:00:00 AM EST eCW1 ([facility]) Name Value Range Interpretation Code Description Data Terri rce(s) Supporting Document(s) 0.087 0.358-3.740 THYROID STIMULATING HORM ONE eCW1 ([facility]) 1.35 0.76-1.46 FREE T4 eCW1 ([facility]) ID Date Data Source Comprehensive Metabolic Profile (CMP) 05/06/2019 12:00:00 AM EST eCW1 ([facility]) Name Value Range Interpretation Code Description Data Terri rce(s) Supporting Document(s) 145 70-100 GLUCOSE, FASTING eCW1 ([facility]) 0.83 0.70-1.30 CREATININE FOR GFR eCW1 ([facility]) 19 7-18 BLOOD UREA NITROGEN eCW1 ([facility]) > 60.0 >49 GLOMERULAR FILTRATION RATE eCW 1 ([facility]) 139 136-145 SODIUM LEVEL eCW1 ([facility]) 4.5 3.5-5.1 POTASSIUM SERUM eCW1 ([facility]) 100 98-107 CHLORIDE LEVEL eCW1 ([facility]) 29 21-32 CARBON DIOXIDE LEVEL eCW1 ([facility]) 43 7-37 AST/SGOT eCW1 ([facility]) 61 45-117 ALKALINE PHOSPHATASE eCW1 ([facility]) 9.7 8.8-10.2 CALCIUM LEVEL eCW1 ([facility]) 55 12-78 ALT/SGPT eCW1 ([facility]) 1.39 1.00-1.93 ALBUMIN/GLOBULIN RATIO eCW1 ([facility]) 7.4 6.4-8.2 TOTAL PROTEIN eCW1 ([facility]) 0.7 0.2-1.0 BILIRUBIN,TOTAL eCW1 ([facility]) 4.3 3.2-5.2 ALBUMIN eCW1 ([facility]) ID Date Data Source CBC with Differential 05/06/2019 12:00:00 AM EST eCW1 ([facility]) Name Value Range Interpretation Code Description Data Terri rce(s) Supporting Document(s) 6.8 4.0-10.0 WHITE BLOOD COUNT eCW1 ([facility]) 16.7 13.5-17.5 HEMOGLOBIN eCW1 ([facility]) 49.5 42.0-52.0 HEMATOCRIT eCW1 ([facility]) 5.12 4.30-6.10 RED BLOOD COUNT eCW1 ([facility]) 96.7 80.0-96.0 MEAN CORPUSCULAR VOLUME e CW1 ([facility]) 11.8 11.5-14.5 RED CELL DISTRIBUTION WID TH eCW1 ([facility]) 32.6 27.0-33.0 MEAN CORPUSCULAR HEMOGLOB IN eCW1 ([facility]) 157 150-450 PLATELET COUNT, AUTOMATED eCW1 ([facility]) 33.7 32.0-36.5 MEAN CORPUSCULAR HGB CONC eCW1 ([facility]) 10.6 0.0-5.0 MONO % eCW1 ([facility]) 54.6 36.0-66.0 NEUTROPHILS % eCW1 ([facility]) 29.7 24.0-44.0 LYMPH % eCW1 ([facility]) 3.1 0.0-3.0 EOS % eCW1 ([facility]) 2.0 1.5-5.0 LYMPH # eCW1 ([facility]) 1.0 0.0-1.0 BASO % eCW1 ([facility]) 3.7 1.5-8.5 NEUTROPHILS # eCW1 ([facility]) 0.7 0.0-0.8 MONO # eCW1 ([facility]) 0.2 0.0-0.5 EOS # eCW1 ([facility]) 0.1 0.0-0.2 BASO # eCW1 ([facility]) Procedure Social History Code Duration Value Status Description Data Source(s ) Smoking 05/23/2020 12:00:00 AM EST Former Smoker completed Former Smoker eCW1 ([facility]) Smoking 05/23/2020 12:00:00 AM EST Former Smoker completed Former Smoker eCW1 ([facility]) Smoking 03/21/2020 12:00:00 AM EST Former Smoker completed Former Smoker eCW1 ([facility]) Smoking 03/21/2020 12:00:00 AM EST Former Smoker completed Former Smoker eCW1 ([facility]) Alcohol intake 02/07/2020 12:00:00 AM EDT Current drinker of al cohol (finding) completed Current drinker of alcohol (finding) [facility] Tobacco use and exposure 02/07/2020 12:00:00 AM EDT Never used co mpleted Never used [facility] Cigarettes smoked current (pack per day) - Reported 02/07/20 20 12:00:00 AM EDT UNK completed [facility] Smoking 02/07/2020 12:00:00 AM EDT Current some day smoker com pleted Current some day smoker [facility] Smoking 05/09/2019 12:00:00 AM EST Former Smoker completed Former Smoker eCW1 [facility]) Smoking 05/09/2019 12:00:00 AM EST Former Smoker completed Former Smoker eCW1 ([facility]) Vital Signs ID Date Data Source UNK Name Value Range Interpretation Code Description Data Source(s) Diastolic blood pressure 80 mm[Hg] 80 mm[Hg] eCW1 ([facility]) Systolic blood pressure 128 mm[Hg] 128 mm[Hg] e CW1 ([facility]) Body temperature 98 [degF] 98 [degF] eCW1 ([facility]) Respiratory rate 18 /min 18 /min eCW1 ([facility]) Heart rate 90 /min 90 /min eCW1 ([facility]) Body mass index (BMI) [Ratio] 26.07 kg/m2 26.07 kg/m2 W1 ([facility] Body height 66.5 [in_i] 66.5 [in_i] eCW1 ([facility]) Body weight 164 [lb_av] 164 [lb_av] eCW1 ([facility]) Diastolic blood pressure 78 mm[Hg] 78 mm[Hg] eCW1 ([facility]) Systolic blood pressure 128 mm[Hg] 128 mm[Hg] e CW1 ([facility]) Body temperature 98.3 [degF] 98.3 [degF] eCW1 ( [facility]) Respiratory rate 18 /min 18 /min eCW1 ([facility]) Heart rate 77 /min 77 /min eCW1 ([facility]) Body mass index (BMI) [Ratio] 24.80 kg/m2 24.80 kg/m2 W1 ([facility]) Body height 66.5 [in_i] 66.5 [in_i] eCW1 ([facility]) Body weight 156 [lb_av] 156 [lb_av] eCW1 ([facility]) Diastolic blood pressure 70 mm[Hg] 70 mm[Hg] eCW1 ([facility]) Systolic blood pressure 132 mm[Hg] 132 mm[Hg] e CW1 ([facility] Body temperature 97.9 [degF] 97.9 [degF] eCW1 ( [facility] Respiratory rate 18 /min 18 /min eCW1 ([facility]) Heart rate 65 /min 65 /min eCW1 ([facility]) Body mass index (BMI) [Ratio] 27.02 kg/m2 27.02 kg/m2 eCW1 ([facility]) Body height 66.5 [in_us] 66.5 [in_us] eCW1 ([facility]) Body weight Measured 170 [lb_av] 170 [lb_av] eC W1 ([facility]) ID Date Data Source [id number] 02/07/2020 10:16:46 AM [facility] Name Value Range Interpretation Code Description Data Source(s) WEIGHT RECORDED 170 lb 170 lb [facility] Body height Measured 66.[address] [facility] Patient Treatment Plan of Care Planned Activity Planned Date Details Description Data Source (s) dapagliflozin 5 MG Oral Tablet [Farxiga] 11/11/2019 12:00:00 AM [facility] Simvastatin 40 MG Oral Tablet 11/09/2019 12:00:00 AM [facility] Levothyroxine Sodium 0.125 MG Oral Tablet 05/09/2019 12:00:00 AM ES T eCW1 [facility] Simvastatin 10 MG Oral Tablet 07/16/2015 12:00:00 AM [facility] sitagliptin 100 MG Oral Tablet [Januvia] 03/19/2015 12:00:00 AM [facility]
[2020-06-12 11:25] VITALS: BP 145/88
--- NOTE | 2020-06-14 11:15 | ED PDOC ---
Post-Departure Follow-Up left shoulder film faxed to delilah wang for fu Paige Morales MD Jun 14, 2020 11:15
== END 2020-06-12 11:26 | disposition home or self-care (01) ==
LOC: M ED 09:58
DX: S40.012A Contusion of left shoulder, initial encounter (principal); S20.214A Contusion of middle front wall of thorax, initial encounter; V49.49XA Driver injured in collision with other motor vehicles in traffic accident, initial encounter; Y92.410 Unspecified street and highway as the place of occurrence of the external cause

== ENCOUNTER → 2020-07-09 | Outpatient (REF) | payer MEDICARE, BC ==
[~2020-07-09] MED LIST: IBUP-1022 PO
[2020-07-09 14:12] LABS: BASO # 0.1 10^3/uL (0.0-0.2); BASO % 1.3 % (0.0-1.0); EOS # 0.1 10^3/uL (0.0-0.5); EOS % 1.8 % (0.0-3.0); HEMATOCRIT 49.7 % (42.0-52.0); HEMOGLOBIN 16.9 g/dl (13.5-17.5); LYMPH # 2.3 10^3/uL (1.5-5.0); LYMPH % 28.8 % (24.0-44.0); MEAN CORPUSCULAR HEMOGLOBIN 32.9 pg (27.0-33.0); MEAN CORPUSCULAR VOLUME 96.9 fl (80.0-96.0); MONO # 0.7 10^3/uL (0.0-0.8); MONO % 8.9 % (2.0-8.0); NEUTROPHILS # 4.6 10^3/uL (1.5-8.5); NEUTROPHILS % 58.2 % (36.0-66.0); PLATELET COUNT, AUTOMATED 210 10^3/uL (150-450); RED BLOOD COUNT 5.13 10^6/uL (4.30-6.10); WHITE BLOOD COUNT 7.9 10^3/uL (4.0-10.0)
[2020-07-09 15:53] LABS: ALBUMIN 4.6 GM/DL (3.2-5.2); ALT/SGPT 43 U/L (12-78); BILIRUBIN,TOTAL 0.7 MG/DL (0.2-1.0); BLOOD UREA NITROGEN 17 MG/DL (7-18); CALCIUM LEVEL 9.9 MG/DL (8.8-10.2); CARBON DIOXIDE LEVEL 28 MEQ/L (21-32); CHLORIDE LEVEL 104 MEQ/L (98-107); CHOLESTEROL LEVEL 149 MG/DL (<200); CHOLESTEROL RISK RATIO 3.311 (<5); CREATININE FOR GFR 0.74 MG/DL (0.70-1.30); FREE T4 1.24 NG/DL (0.76-1.46); GLOMERULAR FILTRATION RATE > 60.0 (>49); GLUCOSE, FASTING 144 MG/DL (70-100); HDL CHOLESTEROL 45 MG/DL (>40); LDL CHOLESTEROL 70 MG/DL (<100); NON-HDL-C 104 MG/DL; POTASSIUM SERUM 4.5 MEQ/L (3.5-5.1); SODIUM LEVEL 137 MEQ/L (136-145); THYROID STIMULATING HORMONE 0.651 uIU/ML (0.358-3.740); TOTAL PROTEIN 7.5 GM/DL (6.4-8.2); TRIGLYCERIDES LEVEL 169 MG/DL (<150)
[2020-07-09 15:59] LABS: HEMOGLOBIN A1c 6.6 %
== END ==
LOC: M SFHCPLAZ 09:34
PROVIDERS: ATTEND Nurse Practitioner Family
DX: E11.9 Type 2 diabetes mellitus without complications (principal); I10 Essential (primary) hypertension; E03.9 Hypothyroidism, unspecified; E78.2 Mixed hyperlipidemia

== ENCOUNTER → 2020-12-12 | Outpatient (CLI) | payer MEDICARE, BC ==
[2020-12-12 11:34] LABS: ALT/SGPT 38 U/L (12-78); BILIRUBIN,TOTAL 0.6 MG/DL (0.2-1.0); BLOOD UREA NITROGEN 19 MG/DL (7-18); CALCIUM LEVEL 9.9 MG/DL (8.8-10.2); CARBON DIOXIDE LEVEL 28 MEQ/L (21-32); CHLORIDE LEVEL 105 MEQ/L (98-107); CHOLESTEROL LEVEL 139 MG/DL (<200); CHOLESTEROL RISK RATIO 3.475 (<5); CREATININE FOR GFR 0.78 MG/DL (0.70-1.30); FREE T4 1.14 NG/DL (0.76-1.46); GLOMERULAR FILTRATION RATE > 60.0 (>49); GLUCOSE, FASTING 150 MG/DL (70-100); HDL CHOLESTEROL 40 MG/DL (>40); LDL CHOLESTEROL 69 MG/DL (<100); NON-HDL-C 99 MG/DL; POTASSIUM SERUM 4.8 MEQ/L (3.5-5.1); SODIUM LEVEL 138 MEQ/L (136-145); THYROID STIMULATING HORMONE 0.808 uIU/ML (0.358-3.740); TRIGLYCERIDES LEVEL 150 MG/DL (<150)
[2020-12-12 11:57] LABS: HEMOGLOBIN A1c 6.8 %
== END ==
LOC: M PLALAB 07:05
PROVIDERS: ATTEND Nurse Practitioner Family
DX: I10 Essential (primary) hypertension (principal); E78.2 Mixed hyperlipidemia; E03.9 Hypothyroidism, unspecified; E11.9 Type 2 diabetes mellitus without complications; Z12.5 Encounter for screening for malignant neoplasm of prostate
CPT/HCPCS: 36415; 80053; 80061; 83036; 84439; 84443; G0103

== ENCOUNTER → 2021-06-07 | Outpatient (CLI) | payer MEDICARE, BC | LOC: M WUC 13:06 | PROVIDERS: ATTEND Physician Assistant | DX: S20.211A Contusion of right front wall of thorax, initial encounter (principal); S30.0XXA Contusion of lower back and pelvis, initial encounter; X58.XXXA Exposure to other specified factors, initial encounter; Y92.9 Unspecified place or not applicable; Y93.9 Activity, unspecified; Y99.9 Unspecified external cause status ==

== ENCOUNTER → 2021-06-24 | Outpatient (CLI) | payer MEDICARE, BC ==
[2021-06-24 11:22] LABS: ALBUMIN 4.3 GM/DL (3.2-5.2); ALT/SGPT 48 U/L (12-78); BILIRUBIN,TOTAL 0.5 MG/DL (0.2-1.0); BLOOD UREA NITROGEN 22 MG/DL (7-18); CALCIUM LEVEL 10.3 MG/DL (8.8-10.2); CARBON DIOXIDE LEVEL 28 MEQ/L (21-32); CHLORIDE LEVEL 104 MEQ/L (98-107); CHOLESTEROL LEVEL 151 MG/DL (<200); CHOLESTEROL RISK RATIO 3.871 (<5); CREATININE FOR GFR 0.77 MG/DL (0.70-1.30); FREE T4 1.27 NG/DL (0.76-1.46); GLOMERULAR FILTRATION RATE > 60.0 (>42); GLUCOSE, FASTING 133 MG/DL (70-100); HDL CHOLESTEROL 39 MG/DL (>40); LDL CHOLESTEROL 75 MG/DL (<100); NON-HDL-C 112 MG/DL; POTASSIUM SERUM 4.8 MEQ/L (3.5-5.1); SODIUM LEVEL 138 MEQ/L (136-145); TOTAL PROTEIN 7.3 GM/DL (6.4-8.2); TRIGLYCERIDES LEVEL 184 MG/DL (<150)
[2021-06-24 12:05] LABS: HEMOGLOBIN A1c 7.2 %
== END ==
LOC: M PLALAB 08:33
PROVIDERS: ATTEND Nurse Practitioner Family
DX: I10 Essential (primary) hypertension (principal)

== ENCOUNTER → 2021-10-18 | Outpatient (CLI) | payer MEDICARE, BC | LOC: M RAD 08:01 | PROVIDERS: ATTEND Physician Assistant Surgical | DX: M54.2 Cervicalgia (principal) ==

== ENCOUNTER → 2021-11-04 | Outpatient (CLI) | payer MEDICARE, BC ==
[~2021-11-04] MED LIST changes: +ISOVUE-300 61% 50ML VIAL As Ordered ONE; +LIDOCAINE 1% MDV 20ML VIAL As Ordered ONE; +methylPREDNISolone SUSP 40MG/ML 1ML VIAL (DEPO MEDROL) As Ordered ONE
== END ==
LOC: M RADPRO 13:02
PROVIDERS: ATTEND Physician Assistant Surgical
DX: M19.011 Primary osteoarthritis, right shoulder (principal)
CPT/HCPCS: 20610; 76000; J1030; Q9967

== ENCOUNTER → 2021-12-24 | Outpatient (CLI) | payer MEDICARE, BC ==
[~2021-12-24] MED LIST changes: -ISOVUE-300 61% 50ML VIAL As Ordered ONE; -LIDOCAINE 1% MDV 20ML VIAL As Ordered ONE; -methylPREDNISolone SUSP 40MG/ML 1ML VIAL (DEPO MEDROL) As Ordered ONE
[2021-12-24 11:06] LABS: BASO # 0.1 10^3/uL (0.0-0.2); EOS # 0.2 10^3/uL (0.0-0.5); EOS % 2.4 % (0.0-3.0); HEMATOCRIT 47.7 % (42.0-52.0); HEMOGLOBIN 16.1 g/dl (13.5-17.5); LYMPH # 2.7 10^3/uL (1.5-5.0); LYMPH % 39.7 % (24.0-44.0); MEAN CORPUSCULAR HEMOGLOBIN 33.5 pg (27.0-33.0); MEAN CORPUSCULAR HGB CONC 33.8 g/dl (32.0-36.5); MEAN CORPUSCULAR VOLUME 99.4 fl (80.0-96.0); MONO # 0.7 10^3/uL (0.0-0.8); MONO % 10.8 % (2.0-8.0); NEUTROPHILS % 44.9 % (36.0-66.0); PLATELET COUNT, AUTOMATED 188 10^3/uL (150-450); WHITE BLOOD COUNT 6.8 10^3/uL (4.0-10.0)
[2021-12-24 11:27] LABS: HEMOGLOBIN A1c 7.5 %
[2021-12-24 12:39] LABS: ALBUMIN 3.9 GM/DL (3.2-5.2); ALT/SGPT 37 U/L (12-78); BILIRUBIN,TOTAL 0.5 MG/DL (0.2-1.0); BLOOD UREA NITROGEN 21 MG/DL (7-18); CALCIUM LEVEL 10.2 MG/DL (8.8-10.2); CARBON DIOXIDE LEVEL 28 MEQ/L (21-32); CHLORIDE LEVEL 104 MEQ/L (98-107); CHOLESTEROL LEVEL 162 MG/DL (<200); CHOLESTEROL RISK RATIO 4.909 (<5); CREATININE FOR GFR 0.79 MG/DL (0.70-1.30); FREE T4 0.89 NG/DL (0.76-1.46); GLOMERULAR FILTRATION RATE > 60.0 (>42); GLUCOSE, FASTING 162 MG/DL (70-100); HDL CHOLESTEROL 33 MG/DL (>40); NON-HDL-C 129 MG/DL; POTASSIUM SERUM 4.5 MEQ/L (3.5-5.1); SODIUM LEVEL 135 MEQ/L (136-145); TOTAL PROTEIN 6.6 GM/DL (6.4-8.2); TRIGLYCERIDES LEVEL 400 MG/DL (<150)
== END ==
LOC: M PLALAB 07:18
PROVIDERS: ATTEND Nurse Practitioner Family
DX: I10 Essential (primary) hypertension (principal); E78.2 Mixed hyperlipidemia; E03.9 Hypothyroidism, unspecified; E11.9 Type 2 diabetes mellitus without complications; Z12.5 Encounter for screening for malignant neoplasm of prostate
CPT/HCPCS: 36415; 80053; 80061; 83036; 84439; 84443; 85025; G0103

== ENCOUNTER → 2022-06-05 | Outpatient (CLI) | payer MEDICARE, BC ==
[2022-06-05 14:30] LABS: BASO # 0.1 10^3/uL (0.0-0.2); BASO % 0.8 % (0.0-1.0); EOS # 0.2 10^3/uL (0.0-0.5); HEMATOCRIT 44.6 % (42.0-52.0); HEMOGLOBIN 15.2 g/dl (13.5-17.5); LYMPH # 1.9 10^3/uL (1.5-5.0); LYMPH % 24.5 % (24.0-44.0); MEAN CORPUSCULAR HEMOGLOBIN 32.9 pg (27.0-33.0); MEAN CORPUSCULAR HGB CONC 34.1 g/dl (32.0-36.5); MEAN CORPUSCULAR VOLUME 96.5 fl (80.0-96.0); MONO # 0.7 10^3/uL (0.0-0.8); MONO % 8.2 % (2.0-8.0); NEUTROPHILS % 63.5 % (36.0-66.0); PLATELET COUNT, AUTOMATED 210 10^3/uL (150-450); RED BLOOD COUNT 4.62 10^6/uL (4.30-6.10); WHITE BLOOD COUNT 7.9 10^3/uL (4.0-10.0)
[2022-06-05 14:33] LABS: APPEARANCE, URINE CLOUDY (CLEAR); BILIRUBIN, URINE AUTO NEGATIVE (NEGATIVE); BLOOD, URINE BLOOD 1+ (NEGATIVE); COLOR, URINE YELLOW (YELLOW); GLUCOSE, URINE (UA) AUTO 3+ mg/dL (NEGATIVE); KETONE, URINE AUTO NEGATIVE (NEGATIVE); LEUKOCYTE ESTERASE, URINE AUTO NEGATIVE (NEGATIVE); NITRITE, URINE AUTO NEGATIVE (NEGATIVE); PROTEIN, URINE AUTO NEGATIVE (NEGATIVE); SPECIFIC GRAVITY URINE AUTO 1.028 (1.002-1.035)
[2022-06-05 14:39] LABS: AMORPHOUS SEDIMENT SMALL (NEGATIVE); BACTERIA, URINE AUTO NEGATIVE (NEGATIVE); RBC, URINE AUTO 2 /HPF (0-3); SQUAMOUS EPITHELIAL CELL UR AU 0 /HPF (0-6); WBC, URINE AUTO 0 /HPF (0-3)
[2022-06-05 14:48] LABS: INR 0.95; POTASSIUM SERUM 4.2 MMOL/L (3.5-5.1); PROTHROMBIN TIME 12.9 SECONDS (12.5-14.5)
[2022-06-05 14:49] LABS: PARTIAL THROMBOPLASTIN TIME 29.5 SECONDS (24.8-34.2)
[2022-06-05 14:57] LABS: TOTAL 25(OH) VITAMIN D 12.6 NG/ML (20.0-100.0)
[2022-06-05 17:11] LABS: HEMOGLOBIN A1c 6.9 % (4.0-6.0)
== END ==
LOC: M RAD 13:52
PROVIDERS: ATTEND Orthopaedic Surgery
DX: M19.011 Primary osteoarthritis, right shoulder (principal); Z79.899 Other long term (current) drug therapy

== ENCOUNTER → 2022-06-11 | Outpatient (CLI) | payer MEDICARE, BC | LOC: M EKG 10:54 | PROVIDERS: ATTEND Orthopaedic Surgery | DX: Z01.818 Encounter for other preprocedural examination (principal); M19.011 Primary osteoarthritis, right shoulder; Z20.828 Contact with and (suspected) exposure to other viral communicable diseases ==

== ENCOUNTER → 2022-07-30 | Outpatient (CLI) | payer MEDICARE, BC ==
[2022-07-30 10:26] LABS: BASO # 0.1 10^3/uL (0.0-0.2); EOS # 0.1 10^3/uL (0.0-0.5); HEMOGLOBIN 15.5 g/dl (13.5-17.5); LYMPH # 2.2 10^3/uL (1.5-5.0); LYMPH % 35.1 % (24.0-44.0); MEAN CORPUSCULAR HEMOGLOBIN 33.4 pg (27.0-33.0); MEAN CORPUSCULAR HGB CONC 33.7 g/dl (32.0-36.5); MEAN CORPUSCULAR VOLUME 99.1 fl (80.0-96.0); MONO # 0.7 10^3/uL (0.0-0.8); MONO % 10.9 % (2.0-8.0); NEUTROPHILS # 3.1 10^3/uL (1.5-8.5); NEUTROPHILS % 50.3 % (36.0-66.0); PLATELET COUNT, AUTOMATED 235 10^3/uL (150-450); RED BLOOD COUNT 4.64 10^6/uL (4.30-6.10); WHITE BLOOD COUNT 6.1 10^3/uL (4.0-10.0)
[2022-07-30 10:27] LABS: ALBUMIN 4.1 G/DL (3.2-5.2); ALKALINE PHOSPHATASE 47 U/L (46-116); ALT/SGPT 24 U/L (7.0-40); AST/SGOT 26 U/L (<34); BILIRUBIN,TOTAL 0.8 MG/DL (0.3-1.2); BLOOD UREA NITROGEN 22 MG/DL (9-23); CALCIUM LEVEL 9.6 MG/DL (8.3-10.6); CARBON DIOXIDE LEVEL 27 MMOL/L (20-31); CHLORIDE LEVEL 102 MMOL/L (98-107); CHOLESTEROL LEVEL 157 MG/DL (<200); CHOLESTEROL RISK RATIO 3.29 (<5); CREATININE FOR GFR 0.69 MG/DL (0.70-1.30); GLOMERULAR FILTRATION RATE > 60.0 (>42); GLUCOSE, FASTING 140 MG/DL (74-106); HDL CHOLESTEROL 47.7 MG/DL (>40); LDL CHOLESTEROL 85.3 MG/DL (<100); NON-HDL-C 109.3 MG/DL; POTASSIUM SERUM 4.5 MMOL/L (3.5-5.1); SODIUM LEVEL 136 MMOL/L (136-145); TOTAL PROTEIN 6.6 G/DL (5.7-8.2); TRIGLYCERIDES LEVEL 120 MG/DL (<150)
[2022-07-30 10:32] LABS: HEMATOCRIT 46.2 % (42.0-52.0)
[2022-07-30 10:34] LABS: FREE T4 1.15 NG/DL (0.89-1.76)
[2022-07-30 10:37] LABS: VITAMIN B12 LEVEL 333 PG/ML (211-911)
[2022-07-30 11:00] LABS: HEMOGLOBIN A1c 6.3 % (4.0-6.0)
== END ==
LOC: M PLALAB 07:21
PROVIDERS: ATTEND Nurse Practitioner Family
DX: E53.8 Deficiency of other specified B group vitamins (principal)

== ENCOUNTER → 2023-02-10 | Outpatient (CLI) | payer MEDICARE, BC ==
[2023-02-10 10:50] LABS: BASO # 0.1 10^3/uL (0.0-0.2); BASO % 0.9 % (0.0-1.0); EOS # 0.2 10^3/uL (0.0-0.5); HEMATOCRIT 46.6 % (42.0-52.0); HEMOGLOBIN 15.7 g/dl (13.5-17.5); LYMPH # 1.4 10^3/uL (1.5-5.0); LYMPH % 26.5 % (24.0-44.0); MEAN CORPUSCULAR HEMOGLOBIN 32.3 pg (27.0-33.0); MEAN CORPUSCULAR HGB CONC 33.7 g/dl (32.0-36.5); MEAN CORPUSCULAR VOLUME 95.9 fl (80.0-96.0); MONO # 0.6 10^3/uL (0.0-0.8); MONO % 11.5 % (2.0-8.0); NEUTROPHILS % 56.3 % (36.0-66.0); PLATELET COUNT, AUTOMATED 196 10^3/uL (150-450); RED BLOOD COUNT 4.86 10^6/uL (4.30-6.10); WHITE BLOOD COUNT 5.3 10^3/uL (4.0-10.0)
[2023-02-10 11:04] LABS: HEMOGLOBIN A1c 6.5 % (4.0-6.0)
[2023-02-10 11:17] LABS: ALBUMIN 4.1 G/DL (3.2-5.2); ALKALINE PHOSPHATASE 52 U/L (46-116); ALT/SGPT 25 U/L (7.0-40); AST/SGOT 20 U/L (<34); BILIRUBIN,TOTAL 0.6 MG/DL (0.3-1.2); BLOOD UREA NITROGEN 20 MG/DL (9-23); CALCIUM LEVEL 9.9 MG/DL (8.3-10.6); CARBON DIOXIDE LEVEL 26 MMOL/L (20-31); CHLORIDE LEVEL 104 MMOL/L (98-107); CHOLESTEROL LEVEL 139 MG/DL (<200); CHOLESTEROL RISK RATIO 3.02 (<5); CREATININE FOR GFR 0.73 MG/DL (0.70-1.30); GLOMERULAR FILTRATION RATE > 60.0 (>42); GLUCOSE, FASTING 147 MG/DL (74-106); LDL CHOLESTEROL 72.6 MG/DL (<100); POTASSIUM SERUM 4.4 MMOL/L (3.5-5.1); SODIUM LEVEL 140 MMOL/L (136-145); TOTAL PROTEIN 6.8 G/DL (5.7-8.2); TRIGLYCERIDES LEVEL 102 MG/DL (<150)
[2023-02-10 11:19] LABS: CREATININE, URINE 41.1 MG/DL; MALB URINE SIEMENS < 3.0 MG/L; MAU/CREAT RATIO 7.2 MCG/MG (0.0-30.0)
[2023-02-10 11:21] LABS: THYROID STIMULATING HORMONE 0.174 uIU/ML (0.55-4.78)
[2023-02-10 11:22] LABS: FREE T4 1.72 NG/DL (0.89-1.76); VITAMIN B12 LEVEL 339 PG/ML (211-911)
== END ==
LOC: M PLALAB 08:06
PROVIDERS: ATTEND Nurse Practitioner Family
DX: E53.8 Deficiency of other specified B group vitamins (principal); E11.9 Type 2 diabetes mellitus without complications; E03.9 Hypothyroidism, unspecified; E78.2 Mixed hyperlipidemia; Z12.5 Encounter for screening for malignant neoplasm of prostate

== ENCOUNTER → 2023-02-17 | Outpatient (CLI) | payer MEDICARE, BC | LOC: M RAD 09:58 | PROVIDERS: ATTEND Nurse Practitioner Family | DX: N28.1 Cyst of kidney, acquired (principal) ==

== ENCOUNTER → 2023-04-09 | Outpatient (CLI) | payer MEDICARE, BC ==
[2023-04-09 14:57] LABS: FREE T4 1.2 NG/DL (0.89-1.76)
[2023-04-09 14:58] LABS: THYROID STIMULATING HORMONE 0.997 uIU/ML (0.55-4.78)
== END ==
LOC: M PLALAB 09:00
PROVIDERS: ATTEND Nurse Practitioner Family
DX: E03.9 Hypothyroidism, unspecified (principal)

== ENCOUNTER → 2023-09-17 | Outpatient (CLI) | payer MEDICARE, BC ==
[2023-09-17 12:16] LABS: BASO # 0.1 10^3/uL (0.0-0.2); BASO % 1.2 % (0.0-1.0); EOS # 0.2 10^3/uL (0.0-0.5); EOS % 3.3 % (0.0-3.0); HEMATOCRIT 46.8 % (42.0-52.0); HEMOGLOBIN 15.7 g/dl (13.5-17.5); LYMPH # 1.7 10^3/uL (1.5-5.0); LYMPH % 29.7 % (24.0-44.0); MEAN CORPUSCULAR HEMOGLOBIN 32.6 pg (27.0-33.0); MEAN CORPUSCULAR HGB CONC 33.5 g/dl (32.0-36.5); MEAN CORPUSCULAR VOLUME 97.1 fl (80.0-96.0); MONO # 0.7 10^3/uL (0.0-0.8); MONO % 12.3 % (2.0-8.0); NEUTROPHILS % 52.4 % (36.0-66.0); PLATELET COUNT, AUTOMATED 188 10^3/uL (150-450); RED BLOOD COUNT 4.82 10^6/uL (4.30-6.10); WHITE BLOOD COUNT 5.7 10^3/uL (4.0-10.0)
[2023-09-17 12:23] LABS: ALKALINE PHOSPHATASE 62 U/L (46-116); ALT/SGPT 34 U/L (7.0-40); AST/SGOT 25 U/L (<34); BILIRUBIN,TOTAL 0.5 MG/DL (0.3-1.2); BLOOD UREA NITROGEN 19 MG/DL (9-23); CARBON DIOXIDE LEVEL 27 MMOL/L (20-31); CHLORIDE LEVEL 105 MMOL/L (98-107); CHOLESTEROL LEVEL 149 MG/DL (<200); CHOLESTEROL RISK RATIO 3.42 (<5); CREATININE FOR GFR 0.58 MG/DL (0.70-1.30); GLOMERULAR FILTRATION RATE > 60.0 (>42); GLUCOSE, FASTING 148 MG/DL (74-106); HDL CHOLESTEROL 43.5 MG/DL (>40); LDL CHOLESTEROL 76.7 MG/DL (<100); NON-HDL-C 105.5 MG/DL; POTASSIUM SERUM 4.5 MMOL/L (3.5-5.1); SODIUM LEVEL 138 MMOL/L (136-145); TOTAL PROTEIN 6.5 G/DL (5.7-8.2); TRIGLYCERIDES LEVEL 144 MG/DL (<150)
[2023-09-17 12:24] LABS: THYROID STIMULATING HORMONE 0.272 uIU/ML (0.55-4.78)
[2023-09-17 12:25] LABS: FREE T4 1.63 NG/DL (0.89-1.76); TOTAL 25(OH) VITAMIN D 21.1 NG/ML (20.0-100.0); VITAMIN B12 LEVEL 405 PG/ML (211-911)
[2023-09-17 12:26] LABS: HEMOGLOBIN A1c 6.8 % (4.0-6.0)
[2023-09-17 12:43] LABS: CREATININE, URINE 42.6 MG/DL
[2023-09-17 12:46] LABS: MALB URINE SIEMENS < 3.0 MG/L
== END ==
LOC: M PLALAB 07:50
PROVIDERS: ATTEND Nurse Practitioner Family
DX: E11.9 Type 2 diabetes mellitus without complications (principal); E53.8 Deficiency of other specified B group vitamins; E55.9 Vitamin D deficiency, unspecified; I10 Essential (primary) hypertension; E78.2 Mixed hyperlipidemia; E03.9 Hypothyroidism, unspecified

== ENCOUNTER → 2024-05-02 | Outpatient (CLI) | payer MEDICARE, BC ==
[2024-05-02 10:48] LABS: BASO # 0.1 10^3/uL (0.0-0.2); BASO % 1.2 % (0.0-1.0); EOS # 0.2 10^3/uL (0.0-0.5); EOS % 3.3 % (0.0-3.0); HEMOGLOBIN 15.8 g/dl (13.5-17.5); LYMPH # 2.2 10^3/uL (1.5-5.0); LYMPH % 33.6 % (24.0-44.0); MEAN CORPUSCULAR HEMOGLOBIN 33.3 pg (27.0-33.0); MEAN CORPUSCULAR HGB CONC 34.3 g/dl (32.0-36.5); MONO # 0.7 10^3/uL (0.0-0.8); MONO % 11.4 % (2.0-8.0); NEUTROPHILS # 3.2 10^3/uL (1.5-8.5); NEUTROPHILS % 49.3 % (36.0-66.0); PLATELET COUNT, AUTOMATED 187 10^3/uL (150-450); RED BLOOD COUNT 4.74 10^6/uL (4.30-6.10); WHITE BLOOD COUNT 6.4 10^3/uL (4.0-10.0)
[2024-05-02 10:59] LABS: HEMOGLOBIN A1c 7.6 % (4.0-6.0)
[2024-05-02 11:15] LABS: PSA SCREENING 0.83 NG/ML (< 4.00)
[2024-05-02 11:18] LABS: ALBUMIN 4.4 G/DL (3.2-5.2); ALKALINE PHOSPHATASE 60 U/L (40-129); ALT/SGPT 26 U/L (7.0-40); AST/SGOT 18 U/L (<34); BILIRUBIN,TOTAL 0.6 MG/DL (0.3-1.2); BLOOD UREA NITROGEN 21 MG/DL (9-23); CALCIUM LEVEL 10.1 MG/DL (8.3-10.6); CARBON DIOXIDE LEVEL 29 MMOL/L (20-31); CHLORIDE LEVEL 106 MMOL/L (98-107); CHOLESTEROL LEVEL 148 MG/DL (<200); CHOLESTEROL RISK RATIO 3.63 (<5); CREATININE FOR GFR 0.86 MG/DL (0.70-1.30); GLOMERULAR FILTRATION RATE > 60.0 (>42); GLUCOSE, FASTING 159 MG/DL (74-106); HDL CHOLESTEROL 40.7 MG/DL (>40); LDL CHOLESTEROL 79.3 MG/DL (<100); NON-HDL-C 107.3 MG/DL; POTASSIUM SERUM 4.4 MMOL/L (3.5-5.1); SODIUM LEVEL 142 MMOL/L (136-145); TOTAL PROTEIN 6.9 G/DL (5.7-8.2); TRIGLYCERIDES LEVEL 140 MG/DL (<150)
[2024-05-02 11:19] LABS: THYROID STIMULATING HORMONE 1.119 uIU/ML (0.55-4.78); TOTAL 25(OH) VITAMIN D 23.6 NG/ML (20.0-100.0)
[2024-05-02 11:20] LABS: FREE T4 1.51 NG/DL (0.89-1.76)
[2024-05-02 11:21] LABS: VITAMIN B12 LEVEL 452 PG/ML (211-911)
== END ==
LOC: M PLALAB 08:19
PROVIDERS: ATTEND Nurse Practitioner Family
DX: E11.9 Type 2 diabetes mellitus without complications (principal); Z12.5 Encounter for screening for malignant neoplasm of prostate; E53.8 Deficiency of other specified B group vitamins; E55.9 Vitamin D deficiency, unspecified; E03.9 Hypothyroidism, unspecified
CPT/HCPCS: 36415; 80053; 80061; 82306; 82607; 83036; 84439; 84443; 85025; G0103

== ENCOUNTER → 2024-05-02 | Outpatient (CLI) | payer MEDICARE, BC ==
[2024-05-02 12:44] LABS: BASO # 0.1 10^3/uL (0.0-0.2); BASO % 0.8 % (0.0-1.0); EOS # 0.8 10^3/uL (0.0-0.5); EOS % 11.5 % (0.0-3.0); HEMATOCRIT 43.8 % (42.0-52.0); LYMPH # 2.5 10^3/uL (1.5-5.0); LYMPH % 37.2 % (24.0-44.0); MEAN CORPUSCULAR HEMOGLOBIN 30.9 pg (27.0-33.0); MEAN CORPUSCULAR HGB CONC 34.2 g/dl (32.0-36.5); MEAN CORPUSCULAR VOLUME 90.1 fl (80.0-96.0); MONO # 0.7 10^3/uL (0.0-0.8); NEUTROPHILS # 2.7 10^3/uL (1.5-8.5); NEUTROPHILS % 40.2 % (36.0-66.0); PLATELET COUNT, AUTOMATED 153 10^3/uL (150-450); RED BLOOD COUNT 4.86 10^6/uL (4.30-6.10); WHITE BLOOD COUNT 6.6 10^3/uL (4.0-10.0)
[2024-05-02 12:57] LABS: PROSTATIC SPECIFIC AG MONITOR 0.64 NG/ML (< 4.00)
[2024-05-02 13:00] LABS: ALBUMIN 4.2 G/DL (3.2-5.2); ALKALINE PHOSPHATASE 51 U/L (40-129); ALT/SGPT 30 U/L (7.0-40); AST/SGOT 23 U/L (<34); BILIRUBIN,TOTAL 0.7 MG/DL (0.3-1.2); BLOOD UREA NITROGEN 26 MG/DL (9-23); CALCIUM LEVEL 9.3 MG/DL (8.3-10.6); CARBON DIOXIDE LEVEL 30 MMOL/L (20-31); CHLORIDE LEVEL 106 MMOL/L (98-107); CREATININE FOR GFR 0.84 MG/DL (0.70-1.30); GLOMERULAR FILTRATION RATE > 60.0 (>42); GLUCOSE, FASTING 121 MG/DL (74-106); POTASSIUM SERUM 4.3 MMOL/L (3.5-5.1); SODIUM LEVEL 142 MMOL/L (136-145); TOTAL PROTEIN 6.8 G/DL (5.7-8.2)
== END ==
LOC: M WUC 09:20
PROVIDERS: ATTEND Physician Assistant
DX: E29.1 Testicular hypofunction (principal); E11.9 Type 2 diabetes mellitus without complications; E53.8 Deficiency of other specified B group vitamins; E55.9 Vitamin D deficiency, unspecified; E03.9 Hypothyroidism, unspecified; Z12.5 Encounter for screening for malignant neoplasm of prostate; Z79.899 Other long term (current) drug therapy
CPT/HCPCS: 36415; 80053; 80061; 82306; 82607; 83036; 84153; 84402; 84403; 84439; 84443; 85025; G0103

== ENCOUNTER → 2024-05-06 | Outpatient (CLI) | payer MEDICARE, BC | LOC: M RAD 14:25 | PROVIDERS: ATTEND Nurse Practitioner Family | DX: N40.0 Benign prostatic hyperplasia without lower urinary tract symptoms (principal) ==

== ENCOUNTER → 2024-05-09 | Outpatient (CLI) | payer MEDICARE, BC ==
[2024-05-10 12:33] LABS: PSA FREE 0.4 ng/mL; PSA TOTAL 0.8 ng/mL (< OR = 4.0)
== END ==
LOC: M PLALAB 08:20
PROVIDERS: ATTEND Nurse Practitioner Family
DX: N40.0 Benign prostatic hyperplasia without lower urinary tract symptoms (principal)

== ENCOUNTER → 2024-07-21 | Outpatient (REF) | payer MEDICARE, BC ==
[2024-07-21 16:32] LABS: BASO # 0.1 10^3/uL (0.0-0.2); BASO % 1.1 % (0.0-1.0); EOS # 0.2 10^3/uL (0.0-0.5); EOS % 2.1 % (0.0-3.0); HEMATOCRIT 43.6 % (42.0-52.0); LYMPH # 1.5 10^3/uL (1.5-5.0); LYMPH % 21.4 % (24.0-44.0); MEAN CORPUSCULAR HEMOGLOBIN 32.6 pg (27.0-33.0); MEAN CORPUSCULAR HGB CONC 34.4 g/dl (32.0-36.5); MEAN CORPUSCULAR VOLUME 94.8 fl (80.0-96.0); MONO # 0.7 10^3/uL (0.0-0.8); MONO % 10.3 % (2.0-8.0); NEUTROPHILS # 4.6 10^3/uL (1.5-8.5); PLATELET COUNT, AUTOMATED 211 10^3/uL (150-450); WHITE BLOOD COUNT 7.2 10^3/uL (4.0-10.0)
[2024-07-21 16:38] LABS: LIPASE 32 U/L (12-53)
[2024-07-21 16:40] LABS: ALBUMIN 4.2 G/DL (3.2-5.2); ALKALINE PHOSPHATASE 58 U/L (40-129); ALT/SGPT 33 U/L (7.0-40); AST/SGOT 29 U/L (<34); BILIRUBIN,TOTAL 0.5 MG/DL (0.3-1.2); BLOOD UREA NITROGEN 21 MG/DL (9-23); CALCIUM LEVEL 10.2 MG/DL (8.3-10.6); CARBON DIOXIDE LEVEL 27 MMOL/L (20-31); CHLORIDE LEVEL 105 MMOL/L (98-107); CREATININE FOR GFR 0.76 MG/DL (0.70-1.30); GLOMERULAR FILTRATION RATE > 60.0 (>42); GLUCOSE, FASTING 162 MG/DL (74-106); POTASSIUM SERUM 4.7 MMOL/L (3.5-5.1); SODIUM LEVEL 140 MMOL/L (136-145); TOTAL PROTEIN 6.9 G/DL (5.7-8.2)
== END ==
LOC: M SFHCPLAZ 11:21
PROVIDERS: ATTEND Nurse Practitioner Family
DX: R10.84 Generalized abdominal pain (principal)

== ENCOUNTER → 2024-08-04 | Outpatient (CLI) | payer MEDICARE, BC ==
[~2024-08-04] MED LIST changes: +GASTROGRAFIN SOLUTION 30ML As Ordered ONE; +ISOVUE-370 76% 100ML VIAL As Ordered ONE
== END ==
LOC: M RAD 13:27
PROVIDERS: ATTEND Nurse Practitioner Family
DX: R10.84 Generalized abdominal pain (principal); K76.0 Fatty (change of) liver, not elsewhere classified; N28.1 Cyst of kidney, acquired; K57.30 Diverticulosis of large intestine without perforation or abscess without bleeding; K40.20 Bilateral inguinal hernia, without obstruction or gangrene, not specified as recurrent
CPT/HCPCS: 74177; Q9963; Q9967

== ENCOUNTER 2024-09-07 09:52 | Day surgery (SDC) | payer MEDICARE, BC ==
[~2024-09-07] VITALS: Ht 167.6 cm; Wt 71.0 kg
[~2024-09-07 09:52] MED LIST changes: +FENO145T7 PO; -GASTROGRAFIN SOLUTION 30ML As Ordered ONE; -ISOVUE-370 76% 100ML VIAL As Ordered ONE; +JANU100T PO; +LEVO100T5 PO; +LOSA50TA28 PO; +METF10004 PO; +SIMV40TA20 PO; +TAMS1CAP17 PO
[2024-09-07] MEDS ORDERED: LIDOCAINE 2% 100MG/5ML SDV (FOR ANES.) As Ordered ONE (10:50)
[2024-09-07] MEDS ORDERED: GLYCOPYRROLATE INJ 0.2 MG/ML 2 ML VIAL As Ordered ONE (10:50)
[2024-09-07] MEDS ORDERED: propofoL 200 MG/20 ML VIAL As Ordered ONE (10:54)
[2024-09-07 11:30] VITALS: BP 122/75; O2SAT 98
== END 2024-09-07 11:47 | disposition home or self-care (01) ==
LOC: M OPP 09:52
PROVIDERS: ATTEND Surgery
DX: K29.50 Unspecified chronic gastritis without bleeding (principal); K64.1 Second degree hemorrhoids; K57.30 Diverticulosis of large intestine without perforation or abscess without bleeding; R19.4 Change in bowel habit; E11.9 Type 2 diabetes mellitus without complications; I10 Essential (primary) hypertension; E03.9 Hypothyroidism, unspecified; E78.00 Pure hypercholesterolemia, unspecified; N40.0 Benign prostatic hyperplasia without lower urinary tract symptoms; Z79.890 Hormone replacement therapy; Z79.899 Other long term (current) drug therapy; Z79.84 Long term (current) use of oral hypoglycemic drugs; Z87.891 Personal history of nicotine dependence
CPT/HCPCS: 43239; 45378; 88305; J1596

== ENCOUNTER → 2025-01-24 | Outpatient (CLI) | payer MEDICARE, BC ==
[~2025-01-24] MED LIST changes: -IBUP-1022 PO; +IBUP600T42 PO
[2025-01-24 11:27] LABS: BASO # 0.1 10^3/uL (0.0-0.2); BASO % 1.3 % (0.0-1.0); EOS # 0.2 10^3/uL (0.0-0.5); EOS % 3.7 % (0.0-3.0); LYMPH # 1.7 10^3/uL (1.5-5.0); LYMPH % 27.9 % (24.0-44.0); MONO # 0.7 10^3/uL (0.0-0.8); MONO % 11.0 % (2.0-8.0); NEUTROPHILS # 3.2 10^3/uL (1.5-8.5); NEUTROPHILS % 54.3 % (36.0-66.0); PLATELET COUNT, AUTOMATED 215 10^3/uL (150-450)
[2025-01-24 14:52] LABS: ALT/SGPT 25 U/L (7.0-40); AST/SGOT 27 U/L (<34); CALCIUM LEVEL 9.9 MG/DL (8.3-10.6); CARBON DIOXIDE LEVEL 27 MMOL/L (20-31); CHLORIDE LEVEL 102 MMOL/L (98-107); CHOLESTEROL LEVEL 158 MG/DL (<200); CHOLESTEROL RISK RATIO 3.29 (<5); CREATININE FOR GFR 0.75 MG/DL (0.70-1.30); ESTIMATED AVERAGE GLUCOSE 143.0 MG/DL (60-110); GLOMERULAR FILTRATION RATE > 90.0 (>42); LDL CHOLESTEROL 79.6 MG/DL (<100); MAGNESIUM LEVEL 1.7 MG/DL (1.8-2.4); NON-HDL-C 110.0 MG/DL; POTASSIUM SERUM 4.4 MMOL/L (3.5-5.1); PSA SCREENING 0.75 NG/ML (< 4.00); SODIUM LEVEL 137 MMOL/L (136-145); TRIGLYCERIDES LEVEL 152 MG/DL (<150)
== END ==
LOC: M PLALAB 07:35
PROVIDERS: ATTEND Nurse Practitioner Family
DX: I10 Essential (primary) hypertension (principal); E11.9 Type 2 diabetes mellitus without complications; E78.00 Pure hypercholesterolemia, unspecified; Z12.5 Encounter for screening for malignant neoplasm of prostate
CPT/HCPCS: 36415; 80053; 80061; 83036; 83735; 85025; G0103